=== PATIENT | female | born 1950 | race American Indian/Alaskan Native ===

== ENCOUNTER 2017-01-18 12:36 | Inpatient (IN) | payer MEDICARE ==
[2017-01-18 14:00] LABS: Basophils % (Auto) 0.3 % (0.0-1.8); Eosinophils % (Auto) 1.5 % (0.0-4.3); Hematocrit 38.7 % (30.3-42.9); Hemoglobin 12.7 gm/dl (10.1-14.3); Mean Corpuscular HGB Conc 33 % (30-34); Mean Corpuscular Hemoglobin 31 pg (28-32); Mean Corpuscular Volume 96 fl (79-97); Platelet Count 252 K/mm3 (140-440); Red Blood Count 4.04 M/mm3 (3.65-5.03); Red Cell Distribution Width 14.5 % (13.2-15.2); White Blood Count 8.2 K/mm3 (4.5-11.0)
[2017-01-18 14:06] LABS: INR 1.25 (0.87-1.13); Partial Thromboplastin Time 30.4 Sec. (24.2-36.6)
[2017-01-18 14:17] LABS: Anion Gap 19 mmol/L; BUN/Creatinine Ratio 12; Blood Urea Nitrogen 12 mg/dL (7-17); Calcium 8.8 mg/dL (8.4-10.2); Carbon Dioxide 23 mmol/L (22-30); Chloride 103.9 mmol/L (98-107); Glucose 121 mg/dL (65-100); Sodium 143 mmol/L (137-145)
--- NOTE | 2017-01-18 14:37 | Cat Scan Report ---
CT HEAD WITHOUT CONTRAST: HISTORY: Right sided weakness, slurred speech. TECHNIQUE: Sequential CT images without contrast. FINDINGS: Images obtained show bilateral prominence of the sulci and ventricles. There are no abnormal intra- or extra-axial blood or fluid collections. There are no focal masses or evidence of mass effect. The [place] white matter differentiation appears within normal limits. Regions of periventricular decreased attenuation are consistent with microangiopathic ischemic disease. 2 or 3 chronic lacunar infarcts are identified in both basal ganglia. The posterior fossa structures including the fourth ventricle, cerebellum, and brainstem appear normal. IMPRESSION: Evidence of atrophy and microangiopathic ischemic disease. Chronic lacunar infarcts in both basal ganglia. No acute intracranial process noted.
[2017-01-18] MEDS ORDERED: BABY ASPIRIN PO ONE (21:12)
--- NOTE | 2017-01-18 22:11 | Emergency Department Report ---
HPI - General Chief Complaint: Neuro Symptoms/Deficit Time Seen by Provider: 01/18/17 21:12 - HPI HPI: This is a 66 year-old female presents to the emergency department with her daughter with complaint of some altered mental status, slurred speech and some weakness that the daughter says has been going on since about 3 AM this morning. The patient had a fall on Sunday and then again last night. The falls were not witnessed but the daughter was in a nearby room. She says that her speech is much more slurred than usually is. The patient does have a history of dementia but she is usually awake, perkier and now also appears to have some right-sided weakness. She has a history of 2 previous strokes but there is no residual weakness or deficit from this after the patient completed rehabilitation. Her primary care doctor is Dr. Leo. She was not given anything for her symptoms. Presentation. The patient is a tobacco smoker but they deny any illicit drug use. The patient is a poor historian secondary to her current condition. ED Past Medical Hx - Past Medical History Previous Medical History?: Yes Hx Hypertension: Yes Hx CVA: Yes (MILD LEFT SIDED WEAKNESS) Hx Dementia: Yes Additional medical history: Elevated cholesterol - Surgical History Past Surgical History?: Yes Additional Surgical History: LEFT KNEE SURGERY. ear surgery - Social History Smoking Status: Current Every Day Smoker Substance Use Type: None - Medications Home Medications: Home Medications Medication Instructions Recorded Confirmed Last Taken Type Rosuvastatin (Nf) [Crestor] 10 mg PO QHS 11/14/13 11/14/13 Unknown History Atorvastatin [Lipitor] 40 mg PO QHS #30 tablet 11/21/13 Unknown Rx Benztropine [Cogentin] 3 mg PO QHS #30 tablet 11/21/13 Unknown Rx Clopidogrel [Plavix] 75 mg PO QDAY #30 tablet 11/21/13 Unknown Rx Haloperidol [Haldol] 5 mg PO QHS #30 tablet 11/21/13 Unknown Rx Metoprolol [Lopressor TAB] 100 mg PO DAILY #30 tablet 11/21/13 Unknown Rx OLANzapine [Zyprexa] 10 mg PO QHS #30 tablet 11/21/13 Unknown Rx Oxybutynin [Ditropan] 5 mg PO BID #60 tablet 11/21/13 Unknown Rx Trazodone HCl [traZODone] 100 mg PO QHS #30 tablet 11/21/13 Unknown Rx amLODIPine [Norvasc] 10 mg PO DAILY #30 tablet 11/21/13 Unknown Rx ED Review of Systems ROS: Stated complaint: FALL, RIGHT SIDE PAIN Other details as noted in HPI Comment: Unobtainable due to pts medical conditions Physical Exam - Physical Exam Vital Signs: Vital Signs 01/18/17 12:49 Temperature 97.7 F Pulse Rate 63 Respiratory 18 Rate Blood Pressure 150/81 O2 Sat by Pulse 98 Oximetry Physical Exam: GENERAL: Patient is ill-appearing. HENT: Normocephalic. Atraumatic. Patient has moist mucous membranes. EYES: Extraocular motions are intact. Pupils equal reactive to light bilaterally. No nystagmus. NECK: Supple. Trachea is midline. CHEST/LUNGS: Clear to auscultation. There is no respiratory distress noted. HEART/CARDIOVASCULAR: Regular. There is no tachycardia. There is no gallop rub or murmur. ABDOMEN: Abdomen is soft, nontender. Patient has normal bowel sounds. There is no abdominal distention. SKIN: Skin is warm and dry. NEURO: The patient is awake, alert but does show some confusion. There is a mild right upper extremity drift and/or weakness compared to the left. The patient appears to favor her right side as well. She has some slurred or mumbling speech. The patient will stare off, she is consistently stimulated. MUSCULOSKELETAL: There is no tenderness or deformity.There is no evidence of acute injury. ED Course Vital Signs 01/18/17 12:49 Temperature 97.7 F Pulse Rate 63 Respiratory 18 Rate Blood Pressure 150/81 O2 Sat by Pulse 98 Oximetry ED Medical Decision Making - Lab Data Result diagrams: 01/18/17 13:27 01/18/17 13:27 - EKG Data -: EKG Interpreted by Me EKG shows normal: sinus rhythm, axis (LAD), intervals, QRS complexes (LVH, Q waves to the inferior leads), ST-T waves Rate: normal - EKG Data When compared to previous EKG there are: previous EKG unavailable Interpretation: other (sinus rhythm, left axis deviation, LVH, Q waves to the inferior leads) - Radiology Data Radiology results: report reviewed, image reviewed interpreted by me: Chest x-ray does not show any acute process. There are no pleural effusions, obvious pneumonia and there is no pneumothorax. CT HEAD WITHOUT CONTRAST: HISTORY: Right sided weakness, slurred speech. TECHNIQUE: Sequential CT images without contrast. FINDINGS: Images obtained show bilateral prominence of the sulci and ventricles. There are no abnormal intra- or extra-axial blood or fluid collections. There are no focal masses or evidence of mass effect. The [place] white matter differentiation appears within normal limits. Regions of periventricular decreased attenuation are consistent with microangiopathic ischemic disease. 2 or 3 chronic lacunar infarcts are identified in both basal ganglia. The posterior fossa structures including the fourth ventricle, cerebellum, and brainstem appear normal. IMPRESSION: Evidence of atrophy and microangiopathic ischemic disease. Chronic lacunar infarcts in both basal ganglia. No acute intracranial process noted. Transcribed By: TTR Dictated By: SOILA STEINBERG JR, MD Electronically Authenticated By: SOILA STEINBERG JR, MD Signed Date/Time: 01/18/17 6623 - Medical Decision Making This patient had a couple days of some weakness and 2 falls including one yesterday. The patient has apparently been altered with some right-sided weakness and some altered mental status and speech difficulty since about 3 AM. Even with the patient being here for multiple hours prior to getting back to the main emergency department, the patient was not accepted at regional any time that would be consistent for TPA administration. The patient does display some right upper extremity drift and/or weakness and some mumbling speech as well as she is consistently staring off unless she is stimulated. There is concern for possible CVA. CT of the brain shows chronic lacunar infarcts in both basal ganglia but no acute process noted. Labs are grossly unremarkable and do not show any etiology of her symptoms. She will be admitted to the hospital for further evaluation and treatment and has been accepted for admission by the hospitalist, Dr. Masterson. - Differential Diagnosis CVA, TIA, dementia, hypoglycemia Critical Care Time: No Critical care attestation.: If time is entered above; I have spent that time in minutes in the direct care of this critically ill patient, excluding procedure time. ED Disposition Clinical Impression: Weakness CVA (cerebral infarction) Qualifiers: Cerebral infarction mechanism: unspecified mechanism Qualified Code(s): I63.9 - Cerebral infarction, unspecified Hypertension Qualifiers: Hypertension type: essential hypertension Qualified Code(s): I10 - Essential ( primary) hypertension Disposition: OP ADMIT IP TO THIS HOSP Is pt being admited?: Yes Condition: Fair
[2017-01-18 22:47] LABS: Bilirubin,Urine NEG (Negative); Blood,Urine NEG (Negative); Ketones,Urine NEG (Negative); Leukocyte Esterase,Urine NEG (Negative); Mucus,Urine FEW /HPF; Nitrite,Urine NEG (Negative); Protein,Urine <15 mg/dL mg/dL (Negative); RBC,Urine < 1.0 /HPF (0.0-6.0)
--- NOTE | 2017-01-19 00:40 | History and Physical Report ---
History of Present Illness Chief complaint: Weakness and slurred speech History of present illness: 66 YO Female with HTN, CVA with LHP, Dementia, Nicotine Dependence, HLD, presents to ED for evaluation. Pt is unable to give history due to lethargy, and diminished cognition. Pt daughter at bedside during exam and interview and provides history. As per daughter, the patient has experienced recurrent falls and weakness over the past month. Pt also experienced confusion and slurred speech and new onset right sided weakness that began about 0300 hrs with persistent symptoms since that time. No reports of fever, chills, CP, Palpitations, NVD, syncope, loss of bowel/bladder continence, vertigo, leg swelling/calf pain, individual/family history of DVT/PE, productive cough, or recent ill contacts. Pt seen and evaluated in ED and found to have symptoms and exam findings consistent with acute stroke. Pt treated IA stroke protocol. Past History Past Medical History: hypertension, hyperlipidemia, stroke Past Surgical History: Other (Left knee, ear surgery) Social history: single, smoking Family history: diabetes, hypertension Medications and Allergies Allergies Allergy/AdvReac Type Severity Reaction Status Date / Time Penicillins Allergy Itching Verified 11/14/13 20:01 Home Medications Medication Instructions Recorded Confirmed Last Taken Type Rosuvastatin (Nf) [Crestor] 10 mg PO QHS 11/14/13 11/14/13 Unknown History Atorvastatin [Lipitor] 40 mg PO QHS #30 tablet 11/21/13 Unknown Rx Benztropine [Cogentin] 3 mg PO QHS #30 tablet 11/21/13 Unknown Rx Clopidogrel [Plavix] 75 mg PO QDAY #30 tablet 11/21/13 Unknown Rx Haloperidol [Haldol] 5 mg PO QHS #30 tablet 11/21/13 Unknown Rx Metoprolol [Lopressor TAB] 100 mg PO DAILY #30 tablet 11/21/13 Unknown Rx OLANzapine [Zyprexa] 10 mg PO QHS #30 tablet 11/21/13 Unknown Rx Oxybutynin [Ditropan] 5 mg PO BID #60 tablet 11/21/13 Unknown Rx Trazodone HCl [traZODone] 100 mg PO QHS #30 tablet 11/21/13 Unknown Rx amLODIPine [Norvasc] 10 mg PO DAILY #30 tablet 11/21/13 Unknown Rx Review of Systems ROS unobtainable: due to mental status Exam - Constitutional Vitals: Temp Pulse Resp BP Pulse Ox 97.7 F 64 20 180/71 97 01/18/17 12:49 01/18/17 23:15 01/18/17 23:15 01/18/17 23:15 01/18/17 23:00 General appearance: Present: mild distress - Respiratory Respiratory effort: normal Respiratory: bilateral: CTA - Cardiovascular Heart Sounds: Present: S1 & S2. Absent: rub, click - Extremities Extremities: pulses symmetrical, No edema Peripheral Pulses: within normal limits - Abdominal General gastrointestinal: Present: soft, non-tender, non-distended, normal bowel sounds Female genitourinary: Present: normal - Integumentary Integumentary: Present: clear, dry, decreased turgor - Musculoskeletal Musculoskeletal: right sided weakness, left sided weakness - Psychiatric Psychiatric: no intact judgment & insight, no memory intact - Neurologic Neurologic: focal deficits, no moves all extremities, no gait normal Results - Labs CBC & Chem 7: 01/18/17 13:27 01/18/17 13:27 Labs: Abnormal lab results 01/18/17 01/18/17 01/18/17 Range/Units 13:27 13:27 13:27 [place] % (Auto) 7.8 H (0.0-7.3) % PT 16.3 H (12.2-14.9) Sec. INR 1.25 H (0.87-1.13) Potassium 3.0 L (3.6-5.0) mmol/L Glucose 121 H (65-100) mg/dL Assessment and Plan - Patient Problems (1) CVA (cerebral infarction) Onset Date: 11/15/13 Current Visit: Yes Status: Acute Qualifiers: Cerebral infarction mechanism: unspecified mechanism Qualified Code(s): I63.9 - Cerebral infarction, unspecified Plan to address problem: Stroke protocol: CT Head, MRI Brain, MRA Brain, Echo, Carotid Doppler, PT/OT/ Speech Therapy, Antiplatelet therapy, statin therapy, (2) Hypokalemia Current Visit: Yes Status: Acute Plan to address problem: Repleted, repeat bmp (3) HTN (hypertension) Current Visit: Yes Status: Chronic Qualifiers: Hypertension type: essential hypertension Qualified Code(s): I10 - Essential (primary) hypertension Plan to address problem: Monitor bp q shift, permissive hypertension overnight. (4) Hyperlipidemia Current Visit: No Status: Chronic Plan to address problem: Lipid panel, statin therpay, low cholesterol diet, (5) DVT prophylaxis Current Visit: Yes Status: Acute
[2017-01-19] MEDS ORDERED: MILK OF MAGNESIA PO PRN (00:41)
[2017-01-19] MEDS ORDERED: DULCOLAX PR PRN (00:41)
[2017-01-19] MEDS ORDERED: SODIUM CHLORIDE FLUSH SYRINGE 10 ML IV PRN (00:41)
[2017-01-19] MEDS ORDERED: TYLENOL PO PRN (00:41)
[2017-01-19] MEDS ORDERED: PHENERGAN PR PRN (00:41)
[2017-01-19] MEDS ORDERED: REGLAN PO PRN (00:41)
[2017-01-19] MEDS ORDERED: ZOFRAN IV PRN (00:41)
--- NOTE | 2017-01-19 07:17 | XRay Report ---
AP PELVIS: HISTORY: Pain after fall. AP view of the pelvis shows normal pelvic contour and soft tissues. The hips are symmetric and within normal limits as are the sacroiliac joints. Mild bone demineralization is suspected. IMPRESSION: Unremarkable pelvis. Mild osteopenia.
--- NOTE | 2017-01-19 07:17 | XRay Report ---
AP CHEST: HISTORY: Pain after fall AP view of the chest demonstrates a normal mediastinal and cardiac contour with clear lungs and normal bony and soft tissue structures. IMPRESSION: Unremarkable AP chest.
--- NOTE | 2017-01-19 09:22 | Progress Note ---
Assessment and Plan Assessment and plan: --Acute CVA; neuro workup is in progress --Hypertension --Hypokalemia --Dyslipidemia --Tobacco use Hospitalist Physical - Constitutional Vitals: Temp Pulse Resp BP Pulse Ox 98.2 F 49 L 20 180/96 100 01/19/17 05:04 01/19/17 08:08 01/19/17 05:04 01/19/17 08:08 01/19/17 08:08 General appearance: Present: mild distress Results - Labs CBC & Chem 7: 01/18/17 13:27 01/18/17 13:27 Labs: Laboratory Last Values WBC 8.2 K/mm3 (4.5-11.0) 01/18/17 13:27 RBC 4.04 M/mm3 (3.65-5.03) 01/18/17 13:27 Hgb 12.7 gm/dl (10.1-14.3) 01/18/17 13:27 Hct 38.7 % (30.3-42.9) 01/18/17 13:27 MCV 96 fl (79-97) 01/18/17 13:27 MCH 31 pg (28-32) 01/18/17 13:27 MCHC 33 % (30-34) 01/18/17 13:27 RDW 14.5 % (13.2-15.2) 01/18/17 13:27 Plt Count 252 K/mm3 (140-440) 01/18/17 13:27 Lymph % (Auto) 27.4 % (13.4-35.0) 01/18/17 13:27 [place] % (Auto) 7.8 % (0.0-7.3) H 01/18/17 13:27 Eos % (Auto) 1.5 % (0.0-4.3) 01/18/17 13:27 Baso % (Auto) 0.3 % (0.0-1.8) 01/18/17 13:27 Lymph # 2.2 K/mm3 (1.2-5.4) 01/18/17 13:27 [place] # 0.6 K/mm3 (0.0-0.8) 01/18/17 13:27 Eos # 0.1 K/mm3 (0.0-0.4) 01/18/17 13:27 Baso # 0.0 K/mm3 (0.0-0.1) 01/18/17 13:27 Seg Neutrophils % 63.0 % (40.0-70.0) 01/18/17 13:27 Seg Neutrophils # 5.2 K/mm3 (1.8-7.7) 01/18/17 13:27 PT 16.3 Sec. (12.2-14.9) H 01/18/17 13:27 INR 1.25 (0.87-1.13) H 01/18/17 13:27 APTT 30.4 Sec. (24.2-36.6) 01/18/17 13:27 Thrombin Time 16.4 Sec. (15.1-19.6) 01/18/17 13:27 Sodium 143 mmol/L (137-145) 01/18/17 13:27 Potassium 3.0 mmol/L (3.6-5.0) L 01/18/17 13:27 Chloride 103.9 mmol/L (98-107) 01/18/17 13:27 Carbon Dioxide 23 mmol/L (22-30) 01/18/17 13:27 Anion Gap 19 mmol/L 01/18/17 13:27 BUN 12 mg/dL (7-17) 01/18/17 13:27 Creatinine 1.0 mg/dL (0.7-1.2) 01/18/17 13:27 Estimated GFR > 60 ml/min 01/18/17 13:27 BUN/Creatinine Ratio 12 % 01/18/17 13:27 Glucose 121 mg/dL (65-100) H 01/18/17 13:27 Calcium 8.8 mg/dL (8.4-10.2) 01/18/17 13:27 Troponin T < 0.010 ng/mL (0.00-0.029) 01/18/17 13:27 Urine Color Yellow (Yellow) 01/18/17 Unknown Urine Turbidity Clear (Clear) 01/18/17 Unknown Urine pH 6.0 (5.0-7.0) 01/18/17 Unknown Ur Specific [place] 1.014 (1.003-1.030) 01/18/17 Unknown Urine Protein <15 mg/dl mg/dL (Negative) 01/18/17 Unknown Urine Glucose (UA) Neg mg/dL (Negative) 01/18/17 Unknown Urine Ketones Neg mg/dL (Negative) 01/18/17 Unknown Urine Blood Neg (Negative) 01/18/17 Unknown Urine Nitrite Neg (Negative) 01/18/17 Unknown Urine Bilirubin Neg (Negative) 01/18/17 Unknown Urine Urobilinogen 4.0 mg/dL (<2.0) 01/18/17 Unknown Ur Leukocyte Esterase Neg (Negative) 01/18/17 Unknown Urine WBC (Auto) 1.0 /HPF (0.0-6.0) 01/18/17 Unknown Urine RBC (Auto) < 1.0 /HPF (0.0-6.0) 01/18/17 Unknown U Epithel Cells (Auto) < 1.0 /HPF (0-13.0) 01/18/17 Unknown Urine Mucus Few /HPF 01/18/17 Unknown
--- NOTE | 2017-01-19 12:14 | Progress Note ---
<IRMA AU - Last Filed: 01/19/17 13:01> Assessment and Plan Assessment and plan: 66 YO Female with HTN, CVA with LHP, Dementia, Nicotine Dependence, HLD, presents to ED for evaluation. Pt is unable to give history due to lethargy, and diminished cognition. Pt daughter at bedside during exam and interview and provides history. As per daughter, the patient has experienced recurrent falls and weakness over the past month. Pt also experienced confusion and slurred speech and new onset right sided weakness that began about 0300 hrs with persistent symptoms since that time. No reports of fever, chills, CP, Palpitations, NVD, syncope, loss of bowel/bladder continence, vertigo, leg swelling/calf pain, individual/family history of DVT/PE, productive cough, or recent ill contacts. Pt seen and evaluated in ED and found to have symptoms and exam findings consistent with acute stroke. Assessment and Plan (1) CVA (cerebral infarction) Stroke protocol: CT Head, MRI Brain, MRA Brain, Echo, Carotid Doppler, PT/OT/ Speech Therapy, Antiplatelet therapy, statin therapy, NEUROLOGY Consulted (2) Hypokalemia Repeat Cmp, replete if still low (3) HTN (hypertension) Monitor bp q shift, permissive hypertension overnight. (4) Hyperlipidemia Lipid panel, statin therpay, low cholesterol diet, (5) DVT prophylaxis SSD History Interval history: Patient is lethargic and responds to name by opening her eyes but only mumbles. Hospitalist Physical - Constitutional Vitals: Temp Pulse Resp BP Pulse Ox 97.9 F 65 18 180/65 100 01/19/17 10:58 01/19/17 10:58 01/19/17 10:58 01/19/17 10:58 01/19/17 10:58 General appearance: Present: no acute distress - EENT Eyes: Present: PERRL, EOM intact ENT: hearing intact, clear oral mucosa - Neck Neck: Present: supple, normal ROM - Respiratory Respiratory effort: normal Respiratory: bilateral: CTA - Cardiovascular Rhythm: regular Heart Sounds: Present: S1 & S2 - Extremities Extremities: no ischemia, No edema Peripheral Pulses: within normal limits - Abdominal General gastrointestinal: soft, non-tender, non-distended - Integumentary Integumentary: Present: clear, warm, dry - Psychiatric Psychiatric: appropriate mood/affect, cooperative - Neurologic Neurologic: CNII-XII intact - Allied Health Allied health notes reviewed: nursing Results - Labs CBC & Chem 7: 01/18/17 13:27 01/18/17 13:27 Labs: Laboratory Last Values WBC 8.2 K/mm3 (4.5-11.0) 01/18/17 13:27 RBC 4.04 M/mm3 (3.65-5.03) 01/18/17 13:27 Hgb 12.7 gm/dl (10.1-14.3) 01/18/17 13:27 Hct 38.7 % (30.3-42.9) 01/18/17 13:27 MCV 96 fl (79-97) 01/18/17 13:27 MCH 31 pg (28-32) 01/18/17 13:27 MCHC 33 % (30-34) 01/18/17 13:27 RDW 14.5 % (13.2-15.2) 01/18/17 13:27 Plt Count 252 K/mm3 (140-440) 01/18/17 13:27 Lymph % (Auto) 27.4 % (13.4-35.0) 01/18/17 13:27 [place] % (Auto) 7.8 % (0.0-7.3) H 01/18/17 13:27 Eos % (Auto) 1.5 % (0.0-4.3) 01/18/17 13:27 Baso % (Auto) 0.3 % (0.0-1.8) 01/18/17 13:27 Lymph # 2.2 K/mm3 (1.2-5.4) 01/18/17 13:27 [place] # 0.6 K/mm3 (0.0-0.8) 01/18/17 13:27 Eos # 0.1 K/mm3 (0.0-0.4) 01/18/17 13:27 Baso # 0.0 K/mm3 (0.0-0.1) 01/18/17 13:27 Seg Neutrophils % 63.0 % (40.0-70.0) 01/18/17 13:27 Seg Neutrophils # 5.2 K/mm3 (1.8-7.7) 01/18/17 13:27 PT 16.3 Sec. (12.2-14.9) H 01/18/17 13:27 INR 1.25 (0.87-1.13) H 01/18/17 13:27 APTT 30.4 Sec. (24.2-36.6) 01/18/17 13:27 Thrombin Time 16.4 Sec. (15.1-19.6) 01/18/17 13:27 Sodium 143 mmol/L (137-145) 01/18/17 13:27 Potassium 3.0 mmol/L (3.6-5.0) L 01/18/17 13:27 Chloride 103.9 mmol/L (98-107) 01/18/17 13:27 Carbon Dioxide 23 mmol/L (22-30) 01/18/17 13:27 Anion Gap 19 mmol/L 01/18/17 13:27 BUN 12 mg/dL (7-17) 01/18/17 13:27 Creatinine 1.0 mg/dL (0.7-1.2) 01/18/17 13:27 Estimated GFR > 60 ml/min 01/18/17 13:27 BUN/Creatinine Ratio 12 % 01/18/17 13:27 Glucose 121 mg/dL (65-100) H 01/18/17 13:27 Calcium 8.8 mg/dL (8.4-10.2) 01/18/17 13:27 Troponin T < 0.010 ng/mL (0.00-0.029) 01/18/17 13:27 Urine Color Yellow (Yellow) 01/18/17 Unknown Urine Turbidity Clear (Clear) 01/18/17 Unknown Urine pH 6.0 (5.0-7.0) 01/18/17 Unknown Ur Specific [place] 1.014 (1.003-1.030) 01/18/17 Unknown Urine Protein <15 mg/dl mg/dL (Negative) 01/18/17 Unknown Urine Glucose (UA) Neg mg/dL (Negative) 01/18/17 Unknown Urine Ketones Neg mg/dL (Negative) 01/18/17 Unknown Urine Blood Neg (Negative) 01/18/17 Unknown Urine Nitrite Neg (Negative) 01/18/17 Unknown Urine Bilirubin Neg (Negative) 01/18/17 Unknown Urine Urobilinogen 4.0 mg/dL (<2.0) 01/18/17 Unknown Ur Leukocyte Esterase Neg (Negative) 01/18/17 Unknown Urine WBC (Auto) 1.0 /HPF (0.0-6.0) 01/18/17 Unknown Urine RBC (Auto) < 1.0 /HPF (0.0-6.0) 01/18/17 Unknown U Epithel Cells (Auto) < 1.0 /HPF (0-13.0) 01/18/17 Unknown Urine Mucus Few /HPF 01/18/17 Unknown - Imaging and Cardiology Imaging and Cardiology: PRELIMINARY REPORT SHOWS CAROTID DUPLEX DONE.TORTUOUS ICA'S AND HIGH BIFURCATION BILATERALLY. <50% STENOSIS BILATERALLY BY DOPPLER VELOCITIES.ANTEGRADE VERTEBRAL ARTERY FLOW BILATERALLY. <STEFANY RODRIGUEZ - Last Filed: 01/19/17 20:12> Assessment and Plan Assessment and plan: Physical therapy occupational therapy, speech therapy Rehabilitation Neurology evaluation if needed DC planning to case management Agree with the above documentation and treatment plan Hospitalist Physical - Constitutional Vitals: Temp Pulse Resp BP Pulse Ox 97.9 F 71 20 155/62 95 01/19/17 20:01 01/19/17 20:01 01/19/17 20:01 01/19/17 17:38 01/19/17 20:01 Results - Labs CBC & Chem 7: 01/18/17 13:27 01/19/17 13:49 Labs: Laboratory Last Values WBC 8.2 K/mm3 (4.5-11.0) 01/18/17 13:27 RBC 4.04 M/mm3 (3.65-5.03) 01/18/17 13:27 Hgb 12.7 gm/dl (10.1-14.3) 01/18/17 13:27 Hct 38.7 % (30.3-42.9) 01/18/17 13:27 MCV 96 fl (79-97) 01/18/17 13:27 MCH 31 pg (28-32) 01/18/17 13:27 MCHC 33 % (30-34) 01/18/17 13:27 RDW 14.5 % (13.2-15.2) 01/18/17 13:27 Plt Count 252 K/mm3 (140-440) 01/18/17 13:27 Lymph % (Auto) 27.4 % (13.4-35.0) 01/18/17 13:27 [place] % (Auto) 7.8 % (0.0-7.3) H 01/18/17 13:27 Eos % (Auto) 1.5 % (0.0-4.3) 01/18/17 13:27 Baso % (Auto) 0.3 % (0.0-1.8) 01/18/17 13:27 Lymph # 2.2 K/mm3 (1.2-5.4) 01/18/17 13:27 [place] # 0.6 K/mm3 (0.0-0.8) 01/18/17 13:27 Eos # 0.1 K/mm3 (0.0-0.4) 01/18/17 13:27 Baso # 0.0 K/mm3 (0.0-0.1) 01/18/17 13:27 Seg Neutrophils % 63.0 % (40.0-70.0) 01/18/17 13:27 Seg Neutrophils # 5.2 K/mm3 (1.8-7.7) 01/18/17 13:27 PT 16.3 Sec. (12.2-14.9) H 01/18/17 13:27 INR 1.25 (0.87-1.13) H 01/18/17 13:27 APTT 30.4 Sec. (24.2-36.6) 01/18/17 13:27 Thrombin Time 16.4 Sec. (15.1-19.6) 01/18/17 13:27 Sodium 143 mmol/L (137-145) 01/19/17 13:49 Potassium 3.0 mmol/L (3.6-5.0) L 01/19/17 13:49 Chloride 105.0 mmol/L (98-107) 01/19/17 13:49 Carbon Dioxide 25 mmol/L (22-30) 01/19/17 13:49 Anion Gap 16 mmol/L 01/19/17 13:49 BUN 10 mg/dL (7-17) 01/19/17 13:49 Creatinine 0.9 mg/dL (0.7-1.2) 01/19/17 13:49 Estimated GFR > 60 ml/min 01/19/17 13:49 BUN/Creatinine Ratio 11 % 01/19/17 13:49 Glucose 127 mg/dL (65-100) H 01/19/17 13:49 Calcium 8.5 mg/dL (8.4-10.2) 01/19/17 13:49 Total Bilirubin 0.50 mg/dL (0.1-1.2) 01/19/17 13:49 AST 14 units/L (5-40) 01/19/17 13:49 ALT 10 units/L (7-56) 01/19/17 13:49 Alkaline Phosphatase 156 units/L (35-129) H 01/19/17 13:49 Troponin T < 0.010 ng/mL (0.00-0.029) 01/18/17 13:27 Total Protein 6.5 g/dL (6.3-8.2) 01/19/17 13:49 Albumin 3.1 g/dL (3.9-5) L 01/19/17 13:49 Albumin/Globulin Ratio 0.9 % 01/19/17 13:49 Urine Color Yellow (Yellow) 01/18/17 Unknown Urine Turbidity Clear (Clear) 01/18/17 Unknown Urine pH 6.0 (5.0-7.0) 01/18/17 Unknown Ur Specific [place] 1.014 (1.003-1.030) 01/18/17 Unknown Urine Protein <15 mg/dl mg/dL (Negative) 01/18/17 Unknown Urine Glucose (UA) Neg mg/dL (Negative) 01/18/17 Unknown Urine Ketones Neg mg/dL (Negative) 01/18/17 Unknown Urine Blood Neg (Negative) 01/18/17 Unknown Urine Nitrite Neg (Negative) 01/18/17 Unknown Urine Bilirubin Neg (Negative) 01/18/17 Unknown Urine Urobilinogen 4.0 mg/dL (<2.0) 01/18/17 Unknown Ur Leukocyte Esterase Neg (Negative) 01/18/17 Unknown Urine WBC (Auto) 1.0 /HPF (0.0-6.0) 01/18/17 Unknown Urine RBC (Auto) < 1.0 /HPF (0.0-6.0) 01/18/17 Unknown U Epithel Cells (Auto) < 1.0 /HPF (0-13.0) 01/18/17 Unknown Urine Mucus Few /HPF 01/18/17 Unknown
[2017-01-19 14:22] LABS: Alanine Aminotransferase 10 units/L (7-56); Albumin 3.1 g/dL (3.9-5); Albumin/Globulin Ratio 0.9 %; Alkaline Phosphatase 156 units/L (35-129); Anion Gap 16 mmol/L; BUN/Creatinine Ratio 11; Blood Urea Nitrogen 10 mg/dL (7-17); Calcium 8.5 mg/dL (8.4-10.2); Carbon Dioxide 25 mmol/L (22-30); Glucose 127 mg/dL (65-100); Sodium 143 mmol/L (137-145); Total Protein 6.5 g/dL (6.3-8.2)
[2017-01-19] MEDS: PLAVIX PO SCH (15:05)
[2017-01-19] MEDS: DITROPAN PO SCH ×2 (15:06→23:00)
[2017-01-19] MEDS: ASPIRIN PO SCH (15:06)
[2017-01-19] MEDS ORDERED: ATIVAN IV ONE (16:17)
[2017-01-19] MEDS: COGENTIN PO SCH (22:59)
[2017-01-19] MEDS: HALDOL PO SCH (23:00)
[2017-01-19] MEDS: DESYREL PO SCH (23:00)
[2017-01-19] MEDS ORDERED: ATIVAN IV PRN (23:22)
[2017-01-20 06:26] LABS: Anion Gap 19 mmol/L; BUN/Creatinine Ratio 12; Blood Urea Nitrogen 12 mg/dL (7-17); Calcium 8.2 mg/dL (8.4-10.2); Carbon Dioxide 23 mmol/L (22-30); Chloride 106.6 mmol/L (98-107); Cholesterol 145 mg/dL (50-199); Glucose 97 mg/dL (65-100); HDL Cholesterol 37 mg/dL (40-59); LDL Cholesterol,Direct 94 mg/dL (50-130); Potassium 3.1 mmol/L (3.6-5.0); Sodium 145 mmol/L (137-145); Triglycerides 73 mg/dL (2-149)
[2017-01-20] MEDS ORDERED: K-DUR PO ONE (10:00)
[2017-01-20] MEDS: DITROPAN PO SCH ×2 (12:02→22:05)
[2017-01-20] MEDS: PLAVIX PO SCH (12:02)
[2017-01-20] MEDS: ASPIRIN PO SCH (12:03)
--- NOTE | 2017-01-20 12:06 | Consultation ---
History of Present Illness Consult date: 01/20/17 History of present illness: there are two very evry small infarcts in the left hemisphere on the difusion weighted images could be emboli await intrep. of the MRA from radiology explained dx to patient Past History Past Medical History: hypertension, hyperlipidemia, stroke Past Surgical History: Other (Left knee, ear surgery) Social history: single, smoking Family history: diabetes, hypertension Medications and Allergies Allergies Allergy/AdvReac Type Severity Reaction Status Date / Time Penicillins Allergy Itching Verified 11/14/13 20:01 Home Medications Medication Instructions Recorded Confirmed Last Taken Type Rosuvastatin (Nf) [Crestor] 10 mg PO QHS 11/14/13 01/19/17 Unknown History Atorvastatin [Lipitor] 40 mg PO QHS #30 tablet 11/21/13 01/19/17 Unknown Rx Benztropine [Cogentin] 3 mg PO QHS #30 tablet 11/21/13 01/19/17 Unknown Rx Clopidogrel [Plavix] 75 mg PO QDAY #30 tablet 11/21/13 01/19/17 Unknown Rx Haloperidol [Haldol] 5 mg PO QHS #30 tablet 11/21/13 01/19/17 Unknown Rx Metoprolol [Lopressor TAB] 100 mg PO DAILY #30 tablet 11/21/13 01/19/17 Unknown Rx OLANzapine [Zyprexa] 10 mg PO QHS #30 tablet 11/21/13 01/19/17 Unknown Rx Oxybutynin [Ditropan] 5 mg PO BID #60 tablet 11/21/13 01/19/17 Unknown Rx Trazodone HCl [traZODone] 100 mg PO QHS #30 tablet 11/21/13 01/19/17 Unknown Rx amLODIPine [Norvasc] 10 mg PO DAILY #30 tablet 11/21/13 01/19/17 Unknown Rx Active Meds: Active Medications Acetaminophen (Tylenol) 650 mg PO Q4H PRN PRN Reason: Pain, Mild (1-3) Aspirin (Aspirin) 325 mg PO QDAY [facility] Last Admin: 01/20/17 12:03 Dose: 325 mg Atorvastatin Calcium (Lipitor) 40 mg PO QHS [facility] Last Admin: 01/19/17 23:00 Dose: 40 mg Benztropine Mesylate (Cogentin) 3 mg PO QHS [facility] Last Admin: 01/19/17 22:59 Dose: 3 mg Bisacodyl (Dulcolax) 10 mg [place] QDAY PRN PRN Reason: Constipation Clopidogrel Bisulfate (Plavix) 75 mg PO QDAY [facility] Last Admin: 01/20/17 12:02 Dose: 75 mg Haloperidol (Haldol) 5 mg PO QHS [facility] Last Admin: 01/19/17 23:00 Dose: 5 mg Lorazepam (Ativan) 2 mg IV ONCE PRN PRN Reason: Agitation Last Admin: 01/20/17 09:55 Dose: 2 mg Magnesium Hydroxide (Milk Of Magnesia) 30 ml PO Q4H PRN PRN Reason: Constipation Metoclopramide HCl (Reglan) 10 mg PO Q6H PRN PRN Reason: Nausea And Vomiting Olanzapine (Zyprexa) 10 mg PO QHS [facility] Last Admin: 01/19/17 23:04 Dose: 10 mg Ondansetron HCl (Zofran) 4 mg IV Q8H PRN PRN Reason: N/V unrelieved by Reglan Oxybutynin Chloride (Ditropan) 5 mg PO BID [facility] Last Admin: 01/20/17 12:02 Dose: 5 mg Promethazine HCl (Phenergan) 25 mg [place] Q6H PRN PRN Reason: Nausea And Vomiting Sodium Chloride (Sodium Chloride Flush Syringe 10 Ml) 10 ml IV PRN PRN PRN Reason: LINE FLUSH Trazodone HCl (Desyrel) 100 mg PO QHS [facility] Last Admin: 01/19/17 23:00 Dose: 100 mg Physical Examination - Vital Signs Vital Signs: Vital Signs Temp Pulse Resp BP Pulse Ox 97.7 F 63 18 150/81 98 01/18/17 12:49 01/18/17 12:49 01/18/17 12:49 01/18/17 12:49 01/18/17 12:49 Results - Laboratory Findings CBC and BMP: 01/18/17 13:27 01/20/17 04:43 Abnormal Lab Findings: Abnormal Labs 01/18/17 01/18/17 01/18/17 13:27 13:27 13:27 [place] % (Auto) 7.8 H PT 16.3 H INR 1.25 H Potassium 3.0 L Glucose 121 H POC Glucose Calcium Alkaline Phosphatase Albumin HDL Cholesterol 01/19/17 01/19/17 01/20/17 13:49 22:13 04:43 [place] % (Auto) PT INR Potassium 3.0 L 3.1 L Glucose 127 H POC Glucose 153 H Calcium 8.2 L Alkaline Phosphatase 156 H Albumin 3.1 L HDL Cholesterol 37 L
--- NOTE | 2017-01-20 12:08 | Magnetic Resonance Report ---
MRI OF THE BRAIN WITHOUT CONTRAST: HISTORY: Stroke PROCEDURE: Multiplanar, multisequence MR imaging of the brain without IV contrast was performed. FINDINGS: CT brain without contrast dated 01/18/17 was reviewed. MRI demonstrates a solitary 1 cm focus of diffusion restriction in the lateral left frontal cortex on image 22. This appears to overlie the left pre-central gyrus. There is no evidence for hemorrhage, mass or extra-axial fluid collection. There are multiple chronic lacunar infarcts in both basal ganglia measuring less than 1 cm. There are moderate nonspecific chronic white matter changes. The midline structures are central. The basal cisterns are patent. Normal ventricular size. The orbital cavities and sella turcica demonstrate no abnormality. The visualized paranasal sinuses and mastoid air cells are well aerated. IMPRESSION: 1 cm focus of subacute ischemia in the left lateral frontal lobe cortex as described above.
--- NOTE | 2017-01-20 12:09 | Magnetic Resonance Report ---
MRA HEAD WITHOUT CONTRAST HISTORY: Stroke. [id number] imaging with MIP reformations of the jackson of [place] is submitted. Limited noncontrast exam with poor visualization of the distal small vessels. There is no evidence for large vessel occlusion, stenosis or aneurysm near the jackson of [place]. The proximal cerebral arteries are patent throughout. IMPRESSION: Limited but grossly normal MRA of the head.
[2017-01-20] MEDS ORDERED: APRESOLINE IV NR (14:14)
[2017-01-20] MEDS: NORVASC PO SCH (14:25)
[2017-01-20] MEDS: LOPRESSOR PO SCH (14:25)
--- NOTE | 2017-01-20 17:37 | Progress Note ---
Assessment and Plan Assessment and plan: --Hypokalemia; replace per protocol and monitor levels --Acute/subacute CVA; not a candidate for TPA Continue aspirin and statin, physical therapy and occupational therapy, follow neuro workup, neurology following --Hypertension; moderate control continue current antihypertensives and when necessary medications --Dyslipidemia; on statin --Ongoing tobacco use; smoking cessation counseling done advised nicotine patch Risks and consequences of tobacco use explained to the patient, strongly advised to set a date and quit I answered all her questions --DVT prophylaxis; Lovenox Physical therapy occupational therapy DC planning. Case management History Interval history: Sincerely and examined medical records reviewed Admitted with acute CVA, neuro workup is in progress Patient feels better no new complaints Vital signs reviewed Hospitalist Physical - Constitutional Vitals: Temp Pulse Resp BP Pulse Ox 98.3 F 52 L 18 185/71 96 01/20/17 04:48 01/20/17 07:57 01/20/17 04:48 01/20/17 04:48 01/20/17 04:48 General appearance: Present: no acute distress, well-nourished - EENT Eyes: Present: PERRL, irregular pupil - Neck Neck: Present: supple, normal ROM - Respiratory Respiratory effort: normal Respiratory: bilateral: diminished, negative: rales, rhonchi, wheezing - Cardiovascular Rhythm: regular Heart Sounds: Present: S1 & S2 - Extremities Extremities: no ischemia, No edema - Abdominal General gastrointestinal: soft, non-tender, non-distended, normal bowel sounds - Integumentary Integumentary: Present: clear, warm - Psychiatric Psychiatric: appropriate mood/affect, cooperative - Neurologic Neurologic: moves all extremities Results - Labs CBC & Chem 7: 01/18/17 13:27 01/20/17 04:43 Labs: Laboratory Last Values WBC 8.2 K/mm3 (4.5-11.0) 01/18/17 13:27 RBC 4.04 M/mm3 (3.65-5.03) 01/18/17 13:27 Hgb 12.7 gm/dl (10.1-14.3) 01/18/17 13:27 Hct 38.7 % (30.3-42.9) 01/18/17 13:27 MCV 96 fl (79-97) 01/18/17 13:27 MCH 31 pg (28-32) 01/18/17 13:27 MCHC 33 % (30-34) 01/18/17 13:27 RDW 14.5 % (13.2-15.2) 01/18/17 13:27 Plt Count 252 K/mm3 (140-440) 01/18/17 13:27 Lymph % (Auto) 27.4 % (13.4-35.0) 01/18/17 13:27 [place] % (Auto) 7.8 % (0.0-7.3) H 01/18/17 13:27 Eos % (Auto) 1.5 % (0.0-4.3) 01/18/17 13:27 Baso % (Auto) 0.3 % (0.0-1.8) 01/18/17 13:27 Lymph # 2.2 K/mm3 (1.2-5.4) 01/18/17 13:27 [place] # 0.6 K/mm3 (0.0-0.8) 01/18/17 13:27 Eos # 0.1 K/mm3 (0.0-0.4) 01/18/17 13:27 Baso # 0.0 K/mm3 (0.0-0.1) 01/18/17 13:27 Seg Neutrophils % 63.0 % (40.0-70.0) 01/18/17 13:27 Seg Neutrophils # 5.2 K/mm3 (1.8-7.7) 01/18/17 13:27 PT 16.3 Sec. (12.2-14.9) H 01/18/17 13:27 INR 1.25 (0.87-1.13) H 01/18/17 13:27 APTT 30.4 Sec. (24.2-36.6) 01/18/17 13:27 Thrombin Time 16.4 Sec. (15.1-19.6) 01/18/17 13:27 Sodium 145 mmol/L (137-145) 01/20/17 04:43 Potassium 3.1 mmol/L (3.6-5.0) L 01/20/17 04:43 Chloride 106.6 mmol/L (98-107) 01/20/17 04:43 Carbon Dioxide 23 mmol/L (22-30) 01/20/17 04:43 Anion Gap 19 mmol/L 01/20/17 04:43 BUN 12 mg/dL (7-17) 01/20/17 04:43 Creatinine 1.0 mg/dL (0.7-1.2) 01/20/17 04:43 Estimated GFR > 60 ml/min 01/20/17 04:43 BUN/Creatinine Ratio 12 % 01/20/17 04:43 Glucose 97 mg/dL (65-100) 01/20/17 04:43 POC Glucose 153 (70-105) H 01/19/17 22:13 Calcium 8.2 mg/dL (8.4-10.2) L 01/20/17 04:43 Magnesium 2.00 mg/dL (1.7-2.3) 01/20/17 04:43 Total Bilirubin 0.50 mg/dL (0.1-1.2) 01/19/17 13:49 AST 14 units/L (5-40) 01/19/17 13:49 ALT 10 units/L (7-56) 01/19/17 13:49 Alkaline Phosphatase 156 units/L (35-129) H 01/19/17 13:49 Troponin T < 0.010 ng/mL (0.00-0.029) 01/18/17 13:27 Total Protein 6.5 g/dL (6.3-8.2) 01/19/17 13:49 Albumin 3.1 g/dL (3.9-5) L 01/19/17 13:49 Albumin/Globulin Ratio 0.9 % 01/19/17 13:49 Triglycerides 73 mg/dL (2-149) 01/20/17 04:43 Cholesterol 145 mg/dL (50-199) 01/20/17 04:43 LDL Cholesterol Direct 94 mg/dL (50-130) 01/20/17 04:43 HDL Cholesterol 37 mg/dL (40-59) L 01/20/17 04:43 Cholesterol/HDL Ratio 3.91 % 01/20/17 04:43 Urine Color Yellow (Yellow) 01/18/17 Unknown Urine Turbidity Clear (Clear) 01/18/17 Unknown Urine pH 6.0 (5.0-7.0) 01/18/17 Unknown Ur Specific [place] 1.014 (1.003-1.030) 01/18/17 Unknown Urine Protein <15 mg/dl mg/dL (Negative) 01/18/17 Unknown Urine Glucose (UA) Neg mg/dL (Negative) 01/18/17 Unknown Urine Ketones Neg mg/dL (Negative) 01/18/17 Unknown Urine Blood Neg (Negative) 01/18/17 Unknown Urine Nitrite Neg (Negative) 01/18/17 Unknown Urine Bilirubin Neg (Negative) 01/18/17 Unknown Urine Urobilinogen 4.0 mg/dL (<2.0) 01/18/17 Unknown Ur Leukocyte Esterase Neg (Negative) 01/18/17 Unknown Urine WBC (Auto) 1.0 /HPF (0.0-6.0) 01/18/17 Unknown Urine RBC (Auto) < 1.0 /HPF (0.0-6.0) 01/18/17 Unknown U Epithel Cells (Auto) < 1.0 /HPF (0-13.0) 01/18/17 Unknown Urine Mucus Few /HPF 01/18/17 Unknown
[2017-01-20] MEDS ORDERED: APRESOLINE IV PRN (17:45)
[2017-01-20] MEDS: APRESOLINE PO SCH (22:04)
[2017-01-20] MEDS: LOVENOX SUB-Q SCH (22:04)
[2017-01-20] MEDS: DESYREL PO SCH (22:05)
[2017-01-20] MEDS: COGENTIN PO SCH (22:05)
[2017-01-20] MEDS: HALDOL PO SCH (22:05)
[2017-01-21] MEDS: APRESOLINE PO SCH ×3 (06:14→21:59)
[2017-01-21 07:55] LABS: Basophils % (Auto) 0.3 % (0.0-1.8); Eosinophils % (Auto) 1.9 % (0.0-4.3); Hematocrit 35.7 % (30.3-42.9); Hemoglobin 12.5 gm/dl (10.1-14.3); Mean Corpuscular HGB Conc 35 % (30-34); Mean Corpuscular Hemoglobin 33 pg (28-32); Mean Corpuscular Volume 94 fl (79-97); Platelet Count 256 K/mm3 (140-440); Red Blood Count 3.79 M/mm3 (3.65-5.03); Red Cell Distribution Width 14.1 % (13.2-15.2); White Blood Count 6.9 K/mm3 (4.5-11.0)
[2017-01-21 08:05] LABS: Anion Gap 16 mmol/L; BUN/Creatinine Ratio 15; Blood Urea Nitrogen 12 mg/dL (7-17); Calcium 8.3 mg/dL (8.4-10.2); Carbon Dioxide 23 mmol/L (22-30); Glucose 100 mg/dL (65-100); Potassium 3.7 mmol/L (3.6-5.0); Sodium 142 mmol/L (137-145)
[2017-01-21] MEDS: LOPRESSOR PO SCH (10:21)
[2017-01-21] MEDS: PLAVIX PO SCH (10:21)
[2017-01-21] MEDS: NORVASC PO SCH (10:21)
[2017-01-21] MEDS: DITROPAN PO SCH ×2 (10:21→22:01)
[2017-01-21] MEDS: HABITROL TD SCH (10:21)
[2017-01-21] MEDS: BABY ASPIRIN PO SCH (10:22)
--- NOTE | 2017-01-21 14:23 | Progress Note ---
Assessment and Plan - Patient Problems (1) CVA (cerebral infarction) Onset Date: 11/15/13 Current Visit: Yes Status: Acute Qualifiers: Cerebral infarction mechanism: unspecified mechanism Qualified Code(s): I63.9 - Cerebral infarction, unspecified Plan to address problem: Patient did have a CVA. On aspirin statin will require OT PT. She has poor rehabilitation potential secondary to what appears to be advanced dementia have not been limited contact the family. If this is a patient baseline we'll discharge. (2) Weakness Current Visit: Yes Status: Acute Plan to address problem: Echo nearly CVA. (3) HTN (hypertension) Current Visit: Yes Status: Chronic Qualifiers: Hypertension type: essential hypertension Qualified Code(s): I10 - Essential (primary) hypertension Plan to address problem: At present very well controlled continue present medical management. (4) Alzheimers disease Onset Date: 11/15/13 Current Visit: No Status: Chronic (5) GERD (gastroesophageal reflux disease) Current Visit: No Status: Chronic History Interval history: Patient at present unable to communicate. I don't think this is new at think this is her baseline because of Zyprexa have been unable to contact any family at this time attempted to call and at [phone] left message 2. Hospitalist Physical - Constitutional Vitals: Temp Pulse Resp BP Pulse Ox 98.5 F 76 18 120/75 98 01/21/17 05:10 01/21/17 08:20 01/21/17 04:41 01/21/17 06:14 01/20/17 22:00 General appearance: Present: no acute distress, well-nourished, other (not able to communicate noncommunicative) - EENT Eyes: Present: PERRL, EOM intact - Neck Neck: Present: supple, normal ROM - Cardiovascular Rhythm: regular - Extremities Extremities: no ischemia - Abdominal General gastrointestinal: soft, non-tender, non-distended - Psychiatric Psychiatric: other (poor judgment poor cognition) - Neurologic Neurologic: focal deficits Results - Labs CBC & Chem 7: 01/21/17 06:41 01/21/17 06:41 Labs: Laboratory Last Values WBC 6.9 K/mm3 (4.5-11.0) 01/21/17 06:41 RBC 3.79 M/mm3 (3.65-5.03) 01/21/17 06:41 Hgb 12.5 gm/dl (10.1-14.3) 01/21/17 06:41 Hct 35.7 % (30.3-42.9) 01/21/17 06:41 MCV 94 fl (79-97) 01/21/17 06:41 MCH 33 pg (28-32) H 01/21/17 06:41 MCHC 35 % (30-34) H 01/21/17 06:41 RDW 14.1 % (13.2-15.2) 01/21/17 06:41 Plt Count 256 K/mm3 (140-440) 01/21/17 06:41 Lymph % (Auto) 28.5 % (13.4-35.0) 01/21/17 06:41 [place] % (Auto) 8.7 % (0.0-7.3) H 01/21/17 06:41 Eos % (Auto) 1.9 % (0.0-4.3) 01/21/17 06:41 Baso % (Auto) 0.3 % (0.0-1.8) 01/21/17 06:41 Lymph # 2.0 K/mm3 (1.2-5.4) 01/21/17 06:41 [place] # 0.6 K/mm3 (0.0-0.8) 01/21/17 06:41 Eos # 0.1 K/mm3 (0.0-0.4) 01/21/17 06:41 Baso # 0.0 K/mm3 (0.0-0.1) 01/21/17 06:41 Seg Neutrophils % 60.6 % (40.0-70.0) 01/21/17 06:41 Seg Neutrophils # 4.2 K/mm3 (1.8-7.7) 01/21/17 06:41 PT 16.3 Sec. (12.2-14.9) H 01/18/17 13:27 INR 1.25 (0.87-1.13) H 01/18/17 13:27 APTT 30.4 Sec. (24.2-36.6) 01/18/17 13:27 Thrombin Time 16.4 Sec. (15.1-19.6) 01/18/17 13:27 Sodium 142 mmol/L (137-145) 01/21/17 06:41 Potassium 3.7 mmol/L (3.6-5.0) 01/21/17 06:41 Chloride 107.0 mmol/L (98-107) 01/21/17 06:41 Carbon Dioxide 23 mmol/L (22-30) 01/21/17 06:41 Anion Gap 16 mmol/L 01/21/17 06:41 BUN 12 mg/dL (7-17) 01/21/17 06:41 Creatinine 0.8 mg/dL (0.7-1.2) 01/21/17 06:41 Estimated GFR > 60 ml/min 01/21/17 06:41 BUN/Creatinine Ratio 15 % 01/21/17 06:41 Glucose 100 mg/dL (65-100) 01/21/17 06:41 POC Glucose 153 (70-105) H 01/19/17 22:13 Calcium 8.3 mg/dL (8.4-10.2) L 01/21/17 06:41 Magnesium 2.00 mg/dL (1.7-2.3) 01/21/17 06:41 Total Bilirubin 0.50 mg/dL (0.1-1.2) 01/19/17 13:49 AST 14 units/L (5-40) 01/19/17 13:49 ALT 10 units/L (7-56) 01/19/17 13:49 Alkaline Phosphatase 156 units/L (35-129) H 01/19/17 13:49 Troponin T < 0.010 ng/mL (0.00-0.029) 01/18/17 13:27 Total Protein 6.5 g/dL (6.3-8.2) 01/19/17 13:49 Albumin 3.1 g/dL (3.9-5) L 01/19/17 13:49 Albumin/Globulin Ratio 0.9 % 01/19/17 13:49 Triglycerides 73 mg/dL (2-149) 01/20/17 04:43 Cholesterol 145 mg/dL (50-199) 01/20/17 04:43 LDL Cholesterol Direct 94 mg/dL (50-130) 01/20/17 04:43 HDL Cholesterol 37 mg/dL (40-59) L 01/20/17 04:43 Cholesterol/HDL Ratio 3.91 % 01/20/17 04:43 Urine Color Yellow (Yellow) 01/18/17 Unknown Urine Turbidity Clear (Clear) 01/18/17 Unknown Urine pH 6.0 (5.0-7.0) 01/18/17 Unknown Ur Specific [place] 1.014 (1.003-1.030) 01/18/17 Unknown Urine Protein <15 mg/dl mg/dL (Negative) 01/18/17 Unknown Urine Glucose (UA) Neg mg/dL (Negative) 01/18/17 Unknown Urine Ketones Neg mg/dL (Negative) 01/18/17 Unknown Urine Blood Neg (Negative) 01/18/17 Unknown Urine Nitrite Neg (Negative) 01/18/17 Unknown Urine Bilirubin Neg (Negative) 01/18/17 Unknown Urine Urobilinogen 4.0 mg/dL (<2.0) 01/18/17 Unknown Ur Leukocyte Esterase Neg (Negative) 01/18/17 Unknown Urine WBC (Auto) 1.0 /HPF (0.0-6.0) 01/18/17 Unknown Urine RBC (Auto) < 1.0 /HPF (0.0-6.0) 01/18/17 Unknown U Epithel Cells (Auto) < 1.0 /HPF (0-13.0) 01/18/17 Unknown Urine Mucus Few /HPF 01/18/17 Unknown
[2017-01-21] MEDS: DESYREL PO SCH (21:59)
[2017-01-21] MEDS: COGENTIN PO SCH (22:00)
[2017-01-21] MEDS: HALDOL PO SCH (22:00)
[2017-01-21] MEDS: LOVENOX SUB-Q SCH (22:00)
[2017-01-22] MEDS: APRESOLINE PO SCH ×3 (05:12→21:26)
[2017-01-22] MEDS: HABITROL TD SCH (09:17)
[2017-01-22] MEDS: BABY ASPIRIN PO SCH (09:17)
[2017-01-22] MEDS: PLAVIX PO SCH (09:17)
[2017-01-22] MEDS: DITROPAN PO SCH ×2 (09:18→21:26)
[2017-01-22] MEDS: LOPRESSOR PO SCH (09:19)
[2017-01-22] MEDS: NORVASC PO SCH (09:19)
--- NOTE | 2017-01-22 14:20 | Progress Note ---
Assessment and Plan - Patient Problems (1) CVA (cerebral infarction) Onset Date: 11/15/13 Current Visit: Yes Status: Acute Qualifiers: Cerebral infarction mechanism: unspecified mechanism Qualified Code(s): I63.9 - Cerebral infarction, unspecified Plan to address problem: Patient did have a CVA. On aspirin statin will require OT PT. She has poor rehabilitation potential secondary to what appears to be advanced dementia have not been limited contact the family. If this is a patient baseline we'll discharge.to rehab (2) Weakness Current Visit: Yes Status: Acute Plan to address problem: Echo nearly CVA. (3) HTN (hypertension) Current Visit: Yes Status: Chronic Qualifiers: Hypertension type: essential hypertension Qualified Code(s): I10 - Essential (primary) hypertension Plan to address problem: At present very well controlled continue present medical management. (4) Alzheimers disease Onset Date: 11/15/13 Current Visit: No Status: Chronic Plan to address problem: Appears to have advanced disease with mood disorder. stable (5) GERD (gastroesophageal reflux disease) Current Visit: No Status: Chronic History Interval history: Discussed with family about seeking rehabilitation. We'll speak with case management again. Hospitalist Physical - Constitutional Vitals: Temp Pulse Resp BP Pulse Ox 98.1 F 67 19 166/91 93 01/22/17 12:24 01/22/17 13:40 01/22/17 12:24 01/22/17 13:40 01/22/17 12:24 General appearance: Present: no acute distress, well-nourished, other (not able to communicate noncommunicative) - EENT Eyes: Present: PERRL, EOM intact ENT: hearing intact, clear oral mucosa, dentition normal - Neck Neck: Present: supple - Respiratory Respiratory effort: normal Respiratory: bilateral: CTA - Cardiovascular Rhythm: regular Heart Sounds: Present: S1 & S2 - Extremities Extremities: no ischemia, pulses intact Peripheral Pulses: within normal limits - Abdominal General gastrointestinal: soft, non-tender, non-distended - Psychiatric Psychiatric: other (poor cognition dementia. Asthma.) - Neurologic Neurologic: other Results - Labs CBC & Chem 7: 01/21/17 06:41 01/21/17 06:41 Labs: Laboratory Last Values WBC 6.9 K/mm3 (4.5-11.0) 01/21/17 06:41 RBC 3.79 M/mm3 (3.65-5.03) 01/21/17 06:41 Hgb 12.5 gm/dl (10.1-14.3) 01/21/17 06:41 Hct 35.7 % (30.3-42.9) 01/21/17 06:41 MCV 94 fl (79-97) 01/21/17 06:41 MCH 33 pg (28-32) H 01/21/17 06:41 MCHC 35 % (30-34) H 01/21/17 06:41 RDW 14.1 % (13.2-15.2) 01/21/17 06:41 Plt Count 256 K/mm3 (140-440) 01/21/17 06:41 Lymph % (Auto) 28.5 % (13.4-35.0) 01/21/17 06:41 [place] % (Auto) 8.7 % (0.0-7.3) H 01/21/17 06:41 Eos % (Auto) 1.9 % (0.0-4.3) 01/21/17 06:41 Baso % (Auto) 0.3 % (0.0-1.8) 01/21/17 06:41 Lymph # 2.0 K/mm3 (1.2-5.4) 01/21/17 06:41 [place] # 0.6 K/mm3 (0.0-0.8) 01/21/17 06:41 Eos # 0.1 K/mm3 (0.0-0.4) 01/21/17 06:41 Baso # 0.0 K/mm3 (0.0-0.1) 01/21/17 06:41 Seg Neutrophils % 60.6 % (40.0-70.0) 01/21/17 06:41 Seg Neutrophils # 4.2 K/mm3 (1.8-7.7) 01/21/17 06:41 PT 16.3 Sec. (12.2-14.9) H 01/18/17 13:27 INR 1.25 (0.87-1.13) H 01/18/17 13:27 APTT 30.4 Sec. (24.2-36.6) 01/18/17 13:27 Thrombin Time 16.4 Sec. (15.1-19.6) 01/18/17 13:27 Sodium 142 mmol/L (137-145) 01/21/17 06:41 Potassium 3.7 mmol/L (3.6-5.0) 01/21/17 06:41 Chloride 107.0 mmol/L (98-107) 01/21/17 06:41 Carbon Dioxide 23 mmol/L (22-30) 01/21/17 06:41 Anion Gap 16 mmol/L 01/21/17 06:41 BUN 12 mg/dL (7-17) 01/21/17 06:41 Creatinine 0.8 mg/dL (0.7-1.2) 01/21/17 06:41 Estimated GFR > 60 ml/min 01/21/17 06:41 BUN/Creatinine Ratio 15 % 01/21/17 06:41 Glucose 100 mg/dL (65-100) 01/21/17 06:41 POC Glucose 153 (70-105) H 01/19/17 22:13 Calcium 8.3 mg/dL (8.4-10.2) L 01/21/17 06:41 Magnesium 2.00 mg/dL (1.7-2.3) 01/21/17 06:41 Total Bilirubin 0.50 mg/dL (0.1-1.2) 01/19/17 13:49 AST 14 units/L (5-40) 01/19/17 13:49 ALT 10 units/L (7-56) 01/19/17 13:49 Alkaline Phosphatase 156 units/L (35-129) H 01/19/17 13:49 Troponin T < 0.010 ng/mL (0.00-0.029) 01/18/17 13:27 Total Protein 6.5 g/dL (6.3-8.2) 01/19/17 13:49 Albumin 3.1 g/dL (3.9-5) L 01/19/17 13:49 Albumin/Globulin Ratio 0.9 % 01/19/17 13:49 Triglycerides 73 mg/dL (2-149) 01/20/17 04:43 Cholesterol 145 mg/dL (50-199) 01/20/17 04:43 LDL Cholesterol Direct 94 mg/dL (50-130) 01/20/17 04:43 HDL Cholesterol 37 mg/dL (40-59) L 01/20/17 04:43 Cholesterol/HDL Ratio 3.91 % 01/20/17 04:43 Urine Color Yellow (Yellow) 01/18/17 Unknown Urine Turbidity Clear (Clear) 01/18/17 Unknown Urine pH 6.0 (5.0-7.0) 01/18/17 Unknown Ur Specific [place] 1.014 (1.003-1.030) 01/18/17 Unknown Urine Protein <15 mg/dl mg/dL (Negative) 01/18/17 Unknown Urine Glucose (UA) Neg mg/dL (Negative) 01/18/17 Unknown Urine Ketones Neg mg/dL (Negative) 01/18/17 Unknown Urine Blood Neg (Negative) 01/18/17 Unknown Urine Nitrite Neg (Negative) 01/18/17 Unknown Urine Bilirubin Neg (Negative) 01/18/17 Unknown Urine Urobilinogen 4.0 mg/dL (<2.0) 01/18/17 Unknown Ur Leukocyte Esterase Neg (Negative) 01/18/17 Unknown Urine WBC (Auto) 1.0 /HPF (0.0-6.0) 01/18/17 Unknown Urine RBC (Auto) < 1.0 /HPF (0.0-6.0) 01/18/17 Unknown U Epithel Cells (Auto) < 1.0 /HPF (0-13.0) 01/18/17 Unknown Urine Mucus Few /HPF 01/18/17 Unknown
[2017-01-22] MEDS: DESYREL PO SCH (21:26)
[2017-01-22] MEDS: HALDOL PO SCH (21:27)
[2017-01-22] MEDS: COGENTIN PO SCH (21:28)
[2017-01-22] MEDS: LOVENOX SUB-Q SCH (21:28)
[2017-01-23] MEDS: APRESOLINE PO SCH ×3 (06:25→22:58)
[2017-01-23] MEDS: BABY ASPIRIN PO SCH (10:01)
[2017-01-23] MEDS: DITROPAN PO SCH ×2 (10:01→22:58)
[2017-01-23] MEDS: HABITROL TD SCH (10:02)
[2017-01-23] MEDS: LOPRESSOR PO SCH (10:03)
[2017-01-23] MEDS: NORVASC PO SCH (10:03)
[2017-01-23] MEDS: PLAVIX PO SCH (10:04)
--- NOTE | 2017-01-23 14:00 | XRay Report ---
AP chest x-ray. Findings: The heart and lungs reveal no acute findings or interval changes since January 18, 2017.
--- NOTE | 2017-01-23 16:21 | Progress Note ---
Assessment and Plan Assessment and plan: Acute CVA - 1 cm focus of subacute ischemia in the left lateral frontal lobe cortex - Continue on aspirin, Plavix and statin - Patient need speech evaluation Weakness - PT or to consult Dementia - Supportive care HTN - continue current regimen Disposition - Pending sub acute rehab placement History Interval history: Patient was seen and evaluated this morning, patient doesn't follow commands. Right-sided hemiparesis. Hospitalist Physical - Physical exam Narrative exam: Not in cardiopulmonary distress. The patient appeared well nourished and normally developed. Vital signs as documented. Head exam is unremarkable. No scleral icterus . Neck is without jugular venous distension, thyromegaly, or carotid bruits. Lungs are clear to auscultation. Cardiac exam reveals regular rate and Rhythm. First and second heart sounds normal. No murmurs, rubs or gallops. Abdominal exam reveals normal bowel sounds, no masses, no organomegaly and no aortic enlargement. Extremities are nonedematous and both femoral and pedal pulses are normal. 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 - Constitutional Vitals: Temp Pulse Resp BP Pulse Ox 97.7 F 82 18 142/89 96 01/23/17 03:56 01/23/17 10:30 01/23/17 03:56 01/23/17 10:03 01/23/17 03:56 General appearance: Present: no acute distress, well-nourished, other (not able to communicate noncommunicative) Results - Labs CBC & Chem 7: 01/21/17 06:41 01/21/17 06:41 Labs: Laboratory Last Values WBC 6.9 K/mm3 (4.5-11.0) 01/21/17 06:41 RBC 3.79 M/mm3 (3.65-5.03) 01/21/17 06:41 Hgb 12.5 gm/dl (10.1-14.3) 01/21/17 06:41 Hct 35.7 % (30.3-42.9) 01/21/17 06:41 MCV 94 fl (79-97) 01/21/17 06:41 MCH 33 pg (28-32) H 01/21/17 06:41 MCHC 35 % (30-34) H 01/21/17 06:41 RDW 14.1 % (13.2-15.2) 01/21/17 06:41 Plt Count 256 K/mm3 (140-440) 01/21/17 06:41 Lymph % (Auto) 28.5 % (13.4-35.0) 01/21/17 06:41 [place] % (Auto) 8.7 % (0.0-7.3) H 01/21/17 06:41 Eos % (Auto) 1.9 % (0.0-4.3) 01/21/17 06:41 Baso % (Auto) 0.3 % (0.0-1.8) 01/21/17 06:41 Lymph # 2.0 K/mm3 (1.2-5.4) 01/21/17 06:41 [place] # 0.6 K/mm3 (0.0-0.8) 01/21/17 06:41 Eos # 0.1 K/mm3 (0.0-0.4) 01/21/17 06:41 Baso # 0.0 K/mm3 (0.0-0.1) 01/21/17 06:41 Seg Neutrophils % 60.6 % (40.0-70.0) 01/21/17 06:41 Seg Neutrophils # 4.2 K/mm3 (1.8-7.7) 01/21/17 06:41 PT 16.3 Sec. (12.2-14.9) H 01/18/17 13:27 INR 1.25 (0.87-1.13) H 01/18/17 13:27 APTT 30.4 Sec. (24.2-36.6) 01/18/17 13:27 Thrombin Time 16.4 Sec. (15.1-19.6) 01/18/17 13:27 Sodium 142 mmol/L (137-145) 01/21/17 06:41 Potassium 3.7 mmol/L (3.6-5.0) 01/21/17 06:41 Chloride 107.0 mmol/L (98-107) 01/21/17 06:41 Carbon Dioxide 23 mmol/L (22-30) 01/21/17 06:41 Anion Gap 16 mmol/L 01/21/17 06:41 BUN 12 mg/dL (7-17) 01/21/17 06:41 Creatinine 0.8 mg/dL (0.7-1.2) 01/21/17 06:41 Estimated GFR > 60 ml/min 01/21/17 06:41 BUN/Creatinine Ratio 15 % 01/21/17 06:41 Glucose 100 mg/dL (65-100) 01/21/17 06:41 POC Glucose 153 (70-105) H 01/19/17 22:13 Calcium 8.3 mg/dL (8.4-10.2) L 01/21/17 06:41 Magnesium 2.00 mg/dL (1.7-2.3) 01/21/17 06:41 Total Bilirubin 0.50 mg/dL (0.1-1.2) 01/19/17 13:49 AST 14 units/L (5-40) 01/19/17 13:49 ALT 10 units/L (7-56) 01/19/17 13:49 Alkaline Phosphatase 156 units/L (35-129) H 01/19/17 13:49 Troponin T < 0.010 ng/mL (0.00-0.029) 01/18/17 13:27 Total Protein 6.5 g/dL (6.3-8.2) 01/19/17 13:49 Albumin 3.1 g/dL (3.9-5) L 01/19/17 13:49 Albumin/Globulin Ratio 0.9 % 01/19/17 13:49 Triglycerides 73 mg/dL (2-149) 01/20/17 04:43 Cholesterol 145 mg/dL (50-199) 01/20/17 04:43 LDL Cholesterol Direct 94 mg/dL (50-130) 01/20/17 04:43 HDL Cholesterol 37 mg/dL (40-59) L 01/20/17 04:43 Cholesterol/HDL Ratio 3.91 % 01/20/17 04:43 Urine Color Yellow (Yellow) 01/18/17 Unknown Urine Turbidity Clear (Clear) 01/18/17 Unknown Urine pH 6.0 (5.0-7.0) 01/18/17 Unknown Ur Specific [place] 1.014 (1.003-1.030) 01/18/17 Unknown Urine Protein <15 mg/dl mg/dL (Negative) 01/18/17 Unknown Urine Glucose (UA) Neg mg/dL (Negative) 01/18/17 Unknown Urine Ketones Neg mg/dL (Negative) 01/18/17 Unknown Urine Blood Neg (Negative) 01/18/17 Unknown Urine Nitrite Neg (Negative) 01/18/17 Unknown Urine Bilirubin Neg (Negative) 01/18/17 Unknown Urine Urobilinogen 4.0 mg/dL (<2.0) 01/18/17 Unknown Ur Leukocyte Esterase Neg (Negative) 01/18/17 Unknown Urine WBC (Auto) 1.0 /HPF (0.0-6.0) 01/18/17 Unknown Urine RBC (Auto) < 1.0 /HPF (0.0-6.0) 01/18/17 Unknown U Epithel Cells (Auto) < 1.0 /HPF (0-13.0) 01/18/17 Unknown Urine Mucus Few /HPF 01/18/17 Unknown
[2017-01-23] MEDS: LOVENOX SUB-Q SCH (22:56)
[2017-01-23] MEDS: HALDOL PO SCH (22:57)
[2017-01-23] MEDS: COGENTIN PO SCH (22:57)
[2017-01-23] MEDS: DESYREL PO SCH (22:57)
[2017-01-24] MEDS: APRESOLINE PO SCH ×3 (06:28→23:34)
[2017-01-24 07:09] LABS: Basophils % (Auto) 0.2 % (0.0-1.8); Eosinophils % (Auto) 1.7 % (0.0-4.3); Hematocrit 38.5 % (30.3-42.9); Hemoglobin 13.2 gm/dl (10.1-14.3); Mean Corpuscular HGB Conc 34 % (30-34); Mean Corpuscular Hemoglobin 33 pg (28-32); Mean Corpuscular Volume 95 fl (79-97); Platelet Count 306 K/mm3 (140-440); Red Blood Count 4.03 M/mm3 (3.65-5.03); Red Cell Distribution Width 14.2 % (13.2-15.2); White Blood Count 7.2 K/mm3 (4.5-11.0)
[2017-01-24 07:27] LABS: Anion Gap 17 mmol/L; BUN/Creatinine Ratio 19; Blood Urea Nitrogen 15 mg/dL (7-17); Calcium 8.6 mg/dL (8.4-10.2); Carbon Dioxide 22 mmol/L (22-30); Glucose 103 mg/dL (65-100); Potassium 4.2 mmol/L (3.6-5.0); Sodium 138 mmol/L (137-145)
[2017-01-24] MEDS: DITROPAN PO SCH ×2 (11:00→23:34)
[2017-01-24] MEDS: BABY ASPIRIN PO SCH (11:00)
[2017-01-24] MEDS: HABITROL TD SCH (11:00)
[2017-01-24] MEDS: PLAVIX PO SCH (11:00)
[2017-01-24] MEDS: NORVASC PO SCH (11:00)
[2017-01-24] MEDS: LOPRESSOR PO SCH (11:00)
--- NOTE | 2017-01-24 11:54 | Discharge Summary ---
Providers - Providers Date of Admission: 01/19/17 00:41 Attending physician: MCKENNA KAPLAN MD 01/19/17 00:41 Occupational Therapy Evaluate and Treat [CONS] Routine Comment: Reason For Exam: Neuro deficits Physical Therapy Evaluation and Treat [CONS] Routine Comment: Reason For Exam: Neuro deficits 01/19/17 12:00 Consult to Physician [CONS] Urgent Consulting Provider: RAVEN HAN Reason For Exam: Acute CVA Notified:: Yes 01/23/17 11:28 Speech Therapy Evaluation and Treat [CONS] Urgent Reason For Exam: cva Primary care physician: ANETA HUSAIN Hospitalization Reason for admission: Acute CVA Condition: Stable Disposition: DC/[place]-03 [facility] Time spent for discharge: 31 minutes - Discharge Diagnoses (1) CVA (cerebral infarction) Status: Acute Qualifiers: Cerebral infarction mechanism: unspecified mechanism Qualified Code(s): I63.9 - Cerebral infarction, unspecified Comment: Improved a lot (2) Weakness Status: Acute (3) HTN (hypertension) Status: Chronic Qualifiers: Hypertension type: essential hypertension Qualified Code(s): I10 - Essential (primary) hypertension (4) Alzheimers disease Status: Chronic (5) GERD (gastroesophageal reflux disease) Status: Chronic Core Measure Documentation - Palliative Care Palliative Care/ Comfort Measures: Not Applicable - Core Measures Any of the following diagnoses?: stroke - Stroke Discharge Requirements Statin for LDL = or >70 mg/dl on DC: Yes Anticoag for atrial fib/atrial flutter: Not Applicable Antithrombotic for ischemic stroke: Yes Exam - Physical Exam Narrative exam: Not in cardiopulmonary distress. The patient appeared well nourished and normally developed. Vital signs as documented. Head exam is unremarkable. No scleral icterus . Neck is without jugular venous distension, thyromegaly, or carotid bruits. Lungs are clear to auscultation. Cardiac exam reveals regular rate and Rhythm. First and second heart sounds normal. No murmurs, rubs or gallops. Abdominal exam reveals normal bowel sounds, no masses, no organomegaly and no aortic enlargement. Extremities are nonedematous and both femoral and pedal pulses are normal. 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 - Constitutional Vitals: Temp Pulse Resp BP Pulse Ox 97.3 F L 82 18 123/62 96 01/24/17 08:43 01/24/17 11:00 01/24/17 08:43 01/24/17 11:00 01/24/17 08:43 Plan Activity: advance as tolerated Weight Bearing Status: Non-Weight Bearing Diet: per dietitian instruction Follow up with: ANETA HUSAIN MD [Primary Care Provider] - 3-5 Days Prescriptions: hydrALAZINE [Apresoline TAB] 25 mg PO Q8HR #30 tablet
--- NOTE | 2017-01-24 14:46 | Cat Scan Report ---
CT HEAD WITHOUT CONTRAST: HISTORY: CVA. TECHNIQUE: Sequential 2.5mm CT images. COMPARISON: 01/18/17. FINDINGS: Cerebral Parenchyma: There are multiple bilateral chronic lacunar infarcts in both anterior basal ganglia which are unchanged since 01/18/17. No evidence for hemorrhage, mass or new area of diminished attenuation. Cerebellum: Within normal limits. Brainstem: Within normal limits. Ventricles: Normal. Sella: Normal. Extra-axial spaces: Normal. Basal Cisterns: Normal. Intracranial Hemorrhage: None. Midline Shift: None. Calvarium: Normal. Sinuses: Normal. Mastoid Air Cells: Normal. Visualized Orbits: Normal. IMPRESSION: Chronic lacunar infarcts in both basal ganglia. No acute intracranial process. No significant change since 01/18/17.
--- NOTE | 2017-01-24 15:18 | Progress Note ---
Assessment and Plan Assessment and plan: Acute CVA - 1 cm focus of subacute ischemia in the left lateral frontal lobe cortex - Continue on aspirin, Plavix and statin - Repeat CT head showed no change Patient is not able to eat - GI consult placed for possible PEG placement Weakness - PT or to consult Dementia - Supportive care HTN - continue current regimen Disposition - Consider discharge after evaluated by GI for PEG tube placement. I have called her daughter Rupali [phone] and discussed the management plan. - Patient Problems (1) CVA (cerebral infarction) Onset Date: 11/15/13 Current Visit: Yes Status: Acute Qualifiers: Cerebral infarction mechanism: unspecified mechanism Qualified Code(s): I63.9 - Cerebral infarction, unspecified (2) Weakness Current Visit: Yes Status: Acute (3) HTN (hypertension) Current Visit: Yes Status: Chronic Qualifiers: Hypertension type: essential hypertension Qualified Code(s): I10 - Essential (primary) hypertension (4) Alzheimers disease Onset Date: 11/15/13 Current Visit: No Status: Chronic (5) GERD (gastroesophageal reflux disease) Current Visit: No Status: Chronic History Interval history: Patient was seen and evaluated this morning, patient didn't follow commands. Right-sided hemiparesis. Per patient's nurse, patient is not able to eat Hospitalist Physical - Physical exam Narrative exam: Not in cardiopulmonary distress. The patient appeared well nourished and normally developed. Vital signs as documented. Head exam is unremarkable. No scleral icterus . Neck is without jugular venous distension, thyromegaly, or carotid bruits. Lungs are clear to auscultation. Cardiac exam reveals regular rate and Rhythm. First and second heart sounds normal. No murmurs, rubs or gallops. Abdominal exam reveals normal bowel sounds, no masses, no organomegaly and no aortic enlargement. Extremities are nonedematous and both femoral and pedal pulses are normal. 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 Patient is noncommunicative. - Constitutional Vitals: Temp Pulse Resp BP Pulse Ox 97.6 F 77 18 99/57 98 01/24/17 12:40 01/24/17 12:40 01/24/17 12:40 01/24/17 12:40 01/24/17 12:40 General appearance: Present: no acute distress, well-nourished, other (not able to communicate noncommunicative) Results - Labs CBC & Chem 7: 01/24/17 06:06 01/24/17 06:06 Labs: Laboratory Last Values WBC 7.2 K/mm3 (4.5-11.0) 01/24/17 06:06 RBC 4.03 M/mm3 (3.65-5.03) 01/24/17 06:06 Hgb 13.2 gm/dl (10.1-14.3) 01/24/17 06:06 Hct 38.5 % (30.3-42.9) 01/24/17 06:06 MCV 95 fl (79-97) 01/24/17 06:06 MCH 33 pg (28-32) H 01/24/17 06:06 MCHC 34 % (30-34) 01/24/17 06:06 RDW 14.2 % (13.2-15.2) 01/24/17 06:06 Plt Count 306 K/mm3 (140-440) 01/24/17 06:06 Lymph % (Auto) 29.9 % (13.4-35.0) 01/24/17 06:06 [place] % (Auto) 8.1 % (0.0-7.3) H 01/24/17 06:06 Eos % (Auto) 1.7 % (0.0-4.3) 01/24/17 06:06 Baso % (Auto) 0.2 % (0.0-1.8) 01/24/17 06:06 Lymph # 2.1 K/mm3 (1.2-5.4) 01/24/17 06:06 [place] # 0.6 K/mm3 (0.0-0.8) 01/24/17 06:06 Eos # 0.1 K/mm3 (0.0-0.4) 01/24/17 06:06 Baso # 0.0 K/mm3 (0.0-0.1) 01/24/17 06:06 Seg Neutrophils % 60.1 % (40.0-70.0) 01/24/17 06:06 Seg Neutrophils # 4.3 K/mm3 (1.8-7.7) 01/24/17 06:06 PT 16.3 Sec. (12.2-14.9) H 01/18/17 13:27 INR 1.25 (0.87-1.13) H 01/18/17 13:27 APTT 30.4 Sec. (24.2-36.6) 01/18/17 13:27 Thrombin Time 16.4 Sec. (15.1-19.6) 01/18/17 13:27 Sodium 138 mmol/L (137-145) 01/24/17 06:06 Potassium 4.2 mmol/L (3.6-5.0) 01/24/17 06:06 Chloride 103.0 mmol/L (98-107) 01/24/17 06:06 Carbon Dioxide 22 mmol/L (22-30) 01/24/17 06:06 Anion Gap 17 mmol/L 01/24/17 06:06 BUN 15 mg/dL (7-17) 01/24/17 06:06 Creatinine 0.8 mg/dL (0.7-1.2) 01/24/17 06:06 Estimated GFR > 60 ml/min 01/24/17 06:06 BUN/Creatinine Ratio 19 % 01/24/17 06:06 Glucose 103 mg/dL (65-100) H 01/24/17 06:06 POC Glucose 98 (70-105) 01/24/17 08:50 Calcium 8.6 mg/dL (8.4-10.2) 01/24/17 06:06 Magnesium 2.00 mg/dL (1.7-2.3) 01/21/17 06:41 Total Bilirubin 0.50 mg/dL (0.1-1.2) 01/19/17 13:49 AST 14 units/L (5-40) 01/19/17 13:49 ALT 10 units/L (7-56) 01/19/17 13:49 Alkaline Phosphatase 156 units/L (35-129) H 01/19/17 13:49 Troponin T < 0.010 ng/mL (0.00-0.029) 01/18/17 13:27 Total Protein 6.5 g/dL (6.3-8.2) 01/19/17 13:49 Albumin 3.1 g/dL (3.9-5) L 01/19/17 13:49 Albumin/Globulin Ratio 0.9 % 01/19/17 13:49 Triglycerides 73 mg/dL (2-149) 01/20/17 04:43 Cholesterol 145 mg/dL (50-199) 01/20/17 04:43 LDL Cholesterol Direct 94 mg/dL (50-130) 01/20/17 04:43 HDL Cholesterol 37 mg/dL (40-59) L 01/20/17 04:43 Cholesterol/HDL Ratio 3.91 % 01/20/17 04:43 Urine Color Yellow (Yellow) 01/18/17 Unknown Urine Turbidity Clear (Clear) 01/18/17 Unknown Urine pH 6.0 (5.0-7.0) 01/18/17 Unknown Ur Specific [place] 1.014 (1.003-1.030) 01/18/17 Unknown Urine Protein <15 mg/dl mg/dL (Negative) 01/18/17 Unknown Urine Glucose (UA) Neg mg/dL (Negative) 01/18/17 Unknown Urine Ketones Neg mg/dL (Negative) 01/18/17 Unknown Urine Blood Neg (Negative) 01/18/17 Unknown Urine Nitrite Neg (Negative) 01/18/17 Unknown Urine Bilirubin Neg (Negative) 01/18/17 Unknown Urine Urobilinogen 4.0 mg/dL (<2.0) 01/18/17 Unknown Ur Leukocyte Esterase Neg (Negative) 01/18/17 Unknown Urine WBC (Auto) 1.0 /HPF (0.0-6.0) 01/18/17 Unknown Urine RBC (Auto) < 1.0 /HPF (0.0-6.0) 01/18/17 Unknown U Epithel Cells (Auto) < 1.0 /HPF (0-13.0) 01/18/17 Unknown Urine Mucus Few /HPF 01/18/17 Unknown
[2017-01-24] MEDS: DESYREL PO SCH (23:34)
[2017-01-24] MEDS: COGENTIN PO SCH (23:35)
[2017-01-24] MEDS: HALDOL PO SCH (23:35)
[2017-01-24] MEDS: LOVENOX SUB-Q SCH (23:36)
[2017-01-25 06:30] LABS: Anion Gap 19 mmol/L; BUN/Creatinine Ratio 19; Blood Urea Nitrogen 17 mg/dL (7-17); Calcium 9.1 mg/dL (8.4-10.2); Carbon Dioxide 23 mmol/L (22-30); Chloride 102.7 mmol/L (98-107); Glucose 117 mg/dL (65-100); Potassium 4.6 mmol/L (3.6-5.0); Sodium 140 mmol/L (137-145)
[2017-01-25] MEDS: APRESOLINE PO SCH ×3 (07:02→21:44)
--- NOTE | 2017-01-25 08:04 | Vascular Lab Report ---
CAROTID DUPLEX STUDY: RIGHT PSVEDV CCA PROX:836 CCA DIST:718 ICA PROX:536 ICA MID:9023 ICA DIST:6111 ECA: 809 VERT: 55 6 LEFT PSVEDV CCA PROX:8011 CCA DIST:435 ICA PROX:4910 ICA MID:9315 ICA DIST:56042 ECA: 757 VERT: 49 12 REASON FOR EXAM: Stroke. COMMENTS ON THE RIGHT: Doppler frequency analysis is consistent with 16 to 49 percent diameter reduction of the internal carotid artery. Minimal amount of plaque is seen. The common carotid artery is patent. The external carotid artery is patent. The vertebral artery has antegrade flow. COMMENTS ON THE LEFT: Doppler frequency analysis is consistent with 16 to 49 percent diameter reduction of the internal carotid artery. Minimal amount of plaque is seen. The common carotid artery is patent. The external carotid artery is patent. The vertebral artery has antegrade flow. IMPRESSION: Less than 50% diameter reduction in the internal carotid arteries bilaterally. Consider repeat carotid artery duplex in 12 months.
[2017-01-25] MEDS: HABITROL TD SCH (10:52)
[2017-01-25] MEDS: BABY ASPIRIN PO SCH (10:52)
[2017-01-25] MEDS: PLAVIX PO SCH (10:52)
[2017-01-25] MEDS: NORVASC PO SCH (10:53)
[2017-01-25] MEDS: LOPRESSOR PO SCH (10:53)
[2017-01-25] MEDS: DITROPAN PO SCH ×2 (10:54→21:43)
--- NOTE | 2017-01-25 11:52 | Gastroenterology Consultation ---
History of Present Illness - Reason for Consult Consult date: 01/25/17 PEG placement Requesting physician: MCKENNA KAPLAN - History of Present Illness Patient is a 66 y/o female with PMH of HTN, stroke, HLD, and nicotine dependence who presented to the ED with lethargy, diminished cognition, slurred speech, and new onset right sided weakness. She was admitted for an acute CVA. GI has been consulted for PEG placement. Speech recommended puree diet after evaluation yesterday, however nursing reports pt is unable to eat. This morning was resting in bed. Unable to communicate or follow commands. No family at bedside. History obtained via chart review. Past History Past Medical History: hypertension, hyperlipidemia, stroke Past Surgical History: Other (Left knee, ear surgery) Social history: single, smoking Family history: diabetes, hypertension Medications and Allergies Allergies Allergy/AdvReac Type Severity Reaction Status Date / Time Penicillins Allergy Itching Verified 11/14/13 20:01 Home Medications Medication Instructions Recorded Confirmed Last Taken Type Atorvastatin [Lipitor] 40 mg PO QHS #30 tablet 11/21/13 01/19/17 Unknown Rx Benztropine [Cogentin] 3 mg PO QHS #30 tablet 11/21/13 01/19/17 Unknown Rx Clopidogrel [Plavix] 75 mg PO QDAY #30 tablet 11/21/13 01/19/17 Unknown Rx Haloperidol [Haldol] 5 mg PO QHS #30 tablet 11/21/13 01/19/17 Unknown Rx Metoprolol [Lopressor TAB] 100 mg PO DAILY #30 tablet 11/21/13 01/19/17 Unknown Rx OLANzapine [Zyprexa] 10 mg PO QHS #30 tablet 11/21/13 01/19/17 Unknown Rx Oxybutynin [Ditropan] 5 mg PO BID #60 tablet 11/21/13 01/19/17 Unknown Rx Trazodone HCl [traZODone] 100 mg PO QHS #30 tablet 11/21/13 01/19/17 Unknown Rx amLODIPine [Norvasc] 10 mg PO DAILY #30 tablet 11/21/13 01/19/17 Unknown Rx Aspirin [Aspirin BABY CHEW TAB] 81 mg PO QDAY tab.chew 01/24/17 Unknown Rx Nicotine [Habitrol] 14 mg TD QDAY patch 01/24/17 Unknown Rx hydrALAZINE [Apresoline TAB] 25 mg PO Q8HR #30 tablet 01/24/17 Unknown Rx Active Meds: Active Medications Acetaminophen (Tylenol) 650 mg PO Q4H PRN PRN Reason: Pain, Mild (1-3) Amlodipine Besylate (Norvasc) 10 mg PO QDAY [facility] Last Admin: 01/25/17 10:53 Dose: 10 mg Aspirin (Baby Aspirin) 81 mg PO QDAY [facility] Last Admin: 01/25/17 10:52 Dose: 81 mg Atorvastatin Calcium (Lipitor) 40 mg PO QHS [facility] Last Admin: 01/24/17 23:33 Dose: 40 mg Benztropine Mesylate (Cogentin) 3 mg PO QHS [facility] Last Admin: 01/24/17 23:35 Dose: 3 mg Bisacodyl (Dulcolax) 10 mg [place] QDAY PRN PRN Reason: Constipation Clopidogrel Bisulfate (Plavix) 75 mg PO QDAY [facility] Last Admin: 01/25/17 10:52 Dose: 75 mg Enoxaparin Sodium (Lovenox) 40 mg SUB-Q QDAY@2199 [facility] Last Admin: 01/24/17 23:36 Dose: 40 mg Haloperidol (Haldol) 5 mg PO QHS [facility] Last Admin: 01/24/17 23:35 Dose: 5 mg Hydralazine HCl (Apresoline) 10 mg IV Q4HR PRN PRN Reason: Hypertension Hydralazine HCl (Apresoline) 25 mg PO Q8HR [facility] Last Admin: 01/25/17 07:02 Dose: 25 mg Magnesium Hydroxide (Milk Of Magnesia) 30 ml PO Q4H PRN PRN Reason: Constipation Metoclopramide HCl (Reglan) 10 mg PO Q6H PRN PRN Reason: Nausea And Vomiting Metoprolol Tartrate (Lopressor) 100 mg PO QDAY [facility] Last Admin: 01/25/17 10:53 Dose: 100 mg Nicotine (Habitrol) 14 mg TD QDAY [facility] Last Admin: 01/25/17 10:52 Dose: 14 mg Olanzapine (Zyprexa) 10 mg PO QHS [facility] Last Admin: 01/24/17 23:35 Dose: 10 mg Ondansetron HCl (Zofran) 4 mg IV Q8H PRN PRN Reason: N/V unrelieved by Reglan Oxybutynin Chloride (Ditropan) 5 mg PO BID [facility] Last Admin: 01/25/17 10:54 Dose: 5 mg Promethazine HCl (Phenergan) 25 mg [place] Q6H PRN PRN Reason: Nausea And Vomiting Sodium Chloride (Sodium Chloride Flush Syringe 10 Ml) 10 ml IV PRN PRN PRN Reason: LINE FLUSH Trazodone HCl (Desyrel) 100 mg PO QHS [facility] Last Admin: 01/24/17 23:34 Dose: 100 mg Review of Systems - Review of Systems ROS unobtainable: due to mental status Exam - Constitutional Vital Signs: Temp Pulse Resp BP Pulse Ox 97.3 F L 92 H 20 146/73 98 01/25/17 09:50 01/25/17 10:53 01/25/17 09:50 01/25/17 10:53 01/25/17 09:50 General appearance: no acute distress, other (nonverbal, unable to follow commands) - Respiratory Respiratory: bilateral: CTA - Cardiovascular Rhythm: regular Heart Sounds: Present: S1 & S2 - Gastrointestinal General gastrointestinal: Present: soft, non-distended, normal bowel sounds - Integumentary Integumentary: Present: warm, dry - Neurologic Neurological: other (Right-sided hemiparesis with facial palsy) - Labs CBC & Chem 7: 01/24/17 06:06 01/25/17 05:50 Lab Results: Laboratory Results - last 24 hr 01/24/17 01/24/17 01/24/17 13:10 16:47 22:19 Sodium Potassium Chloride Carbon Dioxide Anion Gap BUN Creatinine Estimated GFR BUN/Creatinine Ratio Glucose POC Glucose 124 H 172 H 129 H Calcium 01/25/17 01/25/17 05:50 08:13 Sodium 140 Potassium 4.6 Chloride 102.7 Carbon Dioxide 23 Anion Gap 19 BUN 17 Creatinine 0.9 Estimated GFR > 60 BUN/Creatinine Ratio 19 Glucose 117 H POC Glucose 105 Calcium 9.1 Assessment and Plan 1.PEG placement -speech recommended puree diet after eval yesterday, however nursing reports pt is unable to eat -Will schedule for EGD/PEG placement in am pending family consent -attempted to call pt's daughter (Rupali Rico [phone]) to discuss PEG, however she did not answer -NPO after MN -PT/INR in am -hold am dose of plavix -will follow
--- NOTE | 2017-01-25 17:46 | Progress Note ---
Assessment and Plan Assessment and plan: Acute CVA - 1 cm focus of subacute ischemia in the left lateral frontal lobe cortex - Continue on aspirin, Plavix and statin - Repeat CT head showed no change Patient is not able to eat - GI consult and will put PEG tomorrow Weakness - PT or to consult Dementia - Supportive care HTN - continue current regimen Disposition - Consider discharge after PEG tube placement. I have called her daughter Rupali [phone] and discussed the management plan. - Patient Problems (1) CVA (cerebral infarction) Onset Date: 11/15/13 Current Visit: Yes Status: Acute Qualifiers: Cerebral infarction mechanism: unspecified mechanism Qualified Code(s): I63.9 - Cerebral infarction, unspecified (2) Weakness Current Visit: Yes Status: Acute (3) HTN (hypertension) Current Visit: Yes Status: Chronic Qualifiers: Hypertension type: essential hypertension Qualified Code(s): I10 - Essential (primary) hypertension (4) Alzheimers disease Onset Date: 11/15/13 Current Visit: No Status: Chronic (5) GERD (gastroesophageal reflux disease) Current Visit: No Status: Chronic History Interval history: Patient was seen and evaluated this morning, patient didn't communicate. Right- sided hemiparesis. Per patient's nurse, patient is not able to eat. Hospitalist Physical - Physical exam Narrative exam: Not in cardiopulmonary distress. The patient appeared well nourished and normally developed. Vital signs as documented. Head exam is unremarkable. No scleral icterus . Neck is without jugular venous distension, thyromegaly, or carotid bruits. Lungs are clear to auscultation. Cardiac exam reveals regular rate and Rhythm. First and second heart sounds normal. No murmurs, rubs or gallops. Abdominal exam reveals normal bowel sounds, no masses, no organomegaly and no aortic enlargement. Extremities are nonedematous and both femoral and pedal pulses are normal. 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 Patient is noncommunicative. - Constitutional Vitals: Temp Pulse Resp BP Pulse Ox 97.3 F L 93 H 20 140/53 93 01/25/17 13:24 01/25/17 15:00 01/25/17 13:24 01/25/17 15:00 01/25/17 13:24 General appearance: Present: no acute distress, well-nourished, other (not able to communicate noncommunicative) Results - Labs CBC & Chem 7: 01/24/17 06:06 01/25/17 05:50 Labs: Laboratory Last Values WBC 7.2 K/mm3 (4.5-11.0) 01/24/17 06:06 RBC 4.03 M/mm3 (3.65-5.03) 01/24/17 06:06 Hgb 13.2 gm/dl (10.1-14.3) 01/24/17 06:06 Hct 38.5 % (30.3-42.9) 01/24/17 06:06 MCV 95 fl (79-97) 01/24/17 06:06 MCH 33 pg (28-32) H 01/24/17 06:06 MCHC 34 % (30-34) 01/24/17 06:06 RDW 14.2 % (13.2-15.2) 01/24/17 06:06 Plt Count 306 K/mm3 (140-440) 01/24/17 06:06 Lymph % (Auto) 29.9 % (13.4-35.0) 01/24/17 06:06 [place] % (Auto) 8.1 % (0.0-7.3) H 01/24/17 06:06 Eos % (Auto) 1.7 % (0.0-4.3) 01/24/17 06:06 Baso % (Auto) 0.2 % (0.0-1.8) 01/24/17 06:06 Lymph # 2.1 K/mm3 (1.2-5.4) 01/24/17 06:06 [place] # 0.6 K/mm3 (0.0-0.8) 01/24/17 06:06 Eos # 0.1 K/mm3 (0.0-0.4) 01/24/17 06:06 Baso # 0.0 K/mm3 (0.0-0.1) 01/24/17 06:06 Seg Neutrophils % 60.1 % (40.0-70.0) 01/24/17 06:06 Seg Neutrophils # 4.3 K/mm3 (1.8-7.7) 01/24/17 06:06 PT 16.3 Sec. (12.2-14.9) H 01/18/17 13:27 INR 1.25 (0.87-1.13) H 01/18/17 13:27 APTT 30.4 Sec. (24.2-36.6) 01/18/17 13:27 Thrombin Time 16.4 Sec. (15.1-19.6) 01/18/17 13:27 Sodium 140 mmol/L (137-145) 01/25/17 05:50 Potassium 4.6 mmol/L (3.6-5.0) 01/25/17 05:50 Chloride 102.7 mmol/L (98-107) 01/25/17 05:50 Carbon Dioxide 23 mmol/L (22-30) 01/25/17 05:50 Anion Gap 19 mmol/L 01/25/17 05:50 BUN 17 mg/dL (7-17) 01/25/17 05:50 Creatinine 0.9 mg/dL (0.7-1.2) 01/25/17 05:50 Estimated GFR > 60 ml/min 01/25/17 05:50 BUN/Creatinine Ratio 19 % 01/25/17 05:50 Glucose 117 mg/dL (65-100) H 01/25/17 05:50 POC Glucose 116 (70-105) H 01/25/17 12:42 Calcium 9.1 mg/dL (8.4-10.2) 01/25/17 05:50 Magnesium 2.00 mg/dL (1.7-2.3) 01/21/17 06:41 Total Bilirubin 0.50 mg/dL (0.1-1.2) 01/19/17 13:49 AST 14 units/L (5-40) 01/19/17 13:49 ALT 10 units/L (7-56) 01/19/17 13:49 Alkaline Phosphatase 156 units/L (35-129) H 01/19/17 13:49 Troponin T < 0.010 ng/mL (0.00-0.029) 01/18/17 13:27 Total Protein 6.5 g/dL (6.3-8.2) 01/19/17 13:49 Albumin 3.1 g/dL (3.9-5) L 01/19/17 13:49 Albumin/Globulin Ratio 0.9 % 01/19/17 13:49 Triglycerides 73 mg/dL (2-149) 01/20/17 04:43 Cholesterol 145 mg/dL (50-199) 01/20/17 04:43 LDL Cholesterol Direct 94 mg/dL (50-130) 01/20/17 04:43 HDL Cholesterol 37 mg/dL (40-59) L 01/20/17 04:43 Cholesterol/HDL Ratio 3.91 % 01/20/17 04:43 Urine Color Yellow (Yellow) 01/18/17 Unknown Urine Turbidity Clear (Clear) 01/18/17 Unknown Urine pH 6.0 (5.0-7.0) 01/18/17 Unknown Ur Specific [place] 1.014 (1.003-1.030) 01/18/17 Unknown Urine Protein <15 mg/dl mg/dL (Negative) 01/18/17 Unknown Urine Glucose (UA) Neg mg/dL (Negative) 01/18/17 Unknown Urine Ketones Neg mg/dL (Negative) 01/18/17 Unknown Urine Blood Neg (Negative) 01/18/17 Unknown Urine Nitrite Neg (Negative) 01/18/17 Unknown Urine Bilirubin Neg (Negative) 01/18/17 Unknown Urine Urobilinogen 4.0 mg/dL (<2.0) 01/18/17 Unknown Ur Leukocyte Esterase Neg (Negative) 01/18/17 Unknown Urine WBC (Auto) 1.0 /HPF (0.0-6.0) 01/18/17 Unknown Urine RBC (Auto) < 1.0 /HPF (0.0-6.0) 01/18/17 Unknown U Epithel Cells (Auto) < 1.0 /HPF (0-13.0) 01/18/17 Unknown Urine Mucus Few /HPF 01/18/17 Unknown
[2017-01-25] MEDS: DESYREL PO SCH (21:43)
[2017-01-25] MEDS: LOVENOX SUB-Q SCH (21:43)
[2017-01-25] MEDS: COGENTIN PO SCH (21:43)
[2017-01-25] MEDS: HALDOL PO SCH (21:44)
[2017-01-26] MEDS: APRESOLINE PO SCH ×2 (05:18→15:55)
[2017-01-26 07:18] LABS: INR 1.18 (0.87-1.13)
[2017-01-26 07:26] LABS: Anion Gap 17 mmol/L; BUN/Creatinine Ratio 24; Blood Urea Nitrogen 22 mg/dL (7-17); Carbon Dioxide 22 mmol/L (22-30); Chloride 104.2 mmol/L (98-107); Glucose 100 mg/dL (65-100); Potassium 4.3 mmol/L (3.6-5.0); Sodium 139 mmol/L (137-145)
--- NOTE | 2017-01-26 08:54 | Event Note ---
Date: 01/26/17 Called and spoke with pt's daughter Rupali Rico ([phone]) this am about PEG tube placement. Discussed benefits, purpose, and risks with her. She wishes to not proceed with EGD/PEG at this time. She states that her mother ate well for her yesterday and she believes she does not need one placed. Will cancel EGD/ PEG for today and sign off. Dr. Bone notified of family's refusal for PEG. Please re-consult if needed.
--- NOTE | 2017-01-26 10:13 | Progress Note ---
Hospitalist Physical - Constitutional Vitals: Temp Pulse Resp BP Pulse Ox 98.0 F 74 20 129/64 98 01/26/17 04:06 01/26/17 04:06 01/26/17 04:06 01/26/17 04:06 01/26/17 04:06 General appearance: Present: no acute distress, well-nourished, other (not able to communicate noncommunicative) Results - Labs CBC & Chem 7: 01/24/17 06:06 01/26/17 06:26 Labs: Laboratory Last Values WBC 7.2 K/mm3 (4.5-11.0) 01/24/17 06:06 RBC 4.03 M/mm3 (3.65-5.03) 01/24/17 06:06 Hgb 13.2 gm/dl (10.1-14.3) 01/24/17 06:06 Hct 38.5 % (30.3-42.9) 01/24/17 06:06 MCV 95 fl (79-97) 01/24/17 06:06 MCH 33 pg (28-32) H 01/24/17 06:06 MCHC 34 % (30-34) 01/24/17 06:06 RDW 14.2 % (13.2-15.2) 01/24/17 06:06 Plt Count 306 K/mm3 (140-440) 01/24/17 06:06 Lymph % (Auto) 29.9 % (13.4-35.0) 01/24/17 06:06 [place] % (Auto) 8.1 % (0.0-7.3) H 01/24/17 06:06 Eos % (Auto) 1.7 % (0.0-4.3) 01/24/17 06:06 Baso % (Auto) 0.2 % (0.0-1.8) 01/24/17 06:06 Lymph # 2.1 K/mm3 (1.2-5.4) 01/24/17 06:06 [place] # 0.6 K/mm3 (0.0-0.8) 01/24/17 06:06 Eos # 0.1 K/mm3 (0.0-0.4) 01/24/17 06:06 Baso # 0.0 K/mm3 (0.0-0.1) 01/24/17 06:06 Seg Neutrophils % 60.1 % (40.0-70.0) 01/24/17 06:06 Seg Neutrophils # 4.3 K/mm3 (1.8-7.7) 01/24/17 06:06 PT 15.6 Sec. (12.2-14.9) H 01/26/17 06:26 INR 1.18 (0.87-1.13) H 01/26/17 06:26 APTT 30.4 Sec. (24.2-36.6) 01/18/17 13:27 Thrombin Time 16.4 Sec. (15.1-19.6) 01/18/17 13:27 Sodium 139 mmol/L (137-145) 01/26/17 06:26 Potassium 4.3 mmol/L (3.6-5.0) 01/26/17 06:26 Chloride 104.2 mmol/L (98-107) 01/26/17 06:26 Carbon Dioxide 22 mmol/L (22-30) 01/26/17 06:26 Anion Gap 17 mmol/L 01/26/17 06:26 BUN 22 mg/dL (7-17) H 01/26/17 06:26 Creatinine 0.9 mg/dL (0.7-1.2) 01/26/17 06:26 Estimated GFR > 60 ml/min 01/26/17 06:26 BUN/Creatinine Ratio 24 % 01/26/17 06:26 Glucose 100 mg/dL (65-100) 01/26/17 06:26 POC Glucose 150 (70-105) H 01/25/17 16:51 Calcium 9.0 mg/dL (8.4-10.2) 01/26/17 06:26 Magnesium 2.00 mg/dL (1.7-2.3) 01/21/17 06:41 Total Bilirubin 0.50 mg/dL (0.1-1.2) 01/19/17 13:49 AST 14 units/L (5-40) 01/19/17 13:49 ALT 10 units/L (7-56) 01/19/17 13:49 Alkaline Phosphatase 156 units/L (35-129) H 01/19/17 13:49 Troponin T < 0.010 ng/mL (0.00-0.029) 01/18/17 13:27 Total Protein 6.5 g/dL (6.3-8.2) 01/19/17 13:49 Albumin 3.1 g/dL (3.9-5) L 01/19/17 13:49 Albumin/Globulin Ratio 0.9 % 01/19/17 13:49 Triglycerides 73 mg/dL (2-149) 01/20/17 04:43 Cholesterol 145 mg/dL (50-199) 01/20/17 04:43 LDL Cholesterol Direct 94 mg/dL (50-130) 01/20/17 04:43 HDL Cholesterol 37 mg/dL (40-59) L 01/20/17 04:43 Cholesterol/HDL Ratio 3.91 % 01/20/17 04:43 Urine Color Yellow (Yellow) 01/18/17 Unknown Urine Turbidity Clear (Clear) 01/18/17 Unknown Urine pH 6.0 (5.0-7.0) 01/18/17 Unknown Ur Specific [place] 1.014 (1.003-1.030) 01/18/17 Unknown Urine Protein <15 mg/dl mg/dL (Negative) 01/18/17 Unknown Urine Glucose (UA) Neg mg/dL (Negative) 01/18/17 Unknown Urine Ketones Neg mg/dL (Negative) 01/18/17 Unknown Urine Blood Neg (Negative) 01/18/17 Unknown Urine Nitrite Neg (Negative) 01/18/17 Unknown Urine Bilirubin Neg (Negative) 01/18/17 Unknown Urine Urobilinogen 4.0 mg/dL (<2.0) 01/18/17 Unknown Ur Leukocyte Esterase Neg (Negative) 01/18/17 Unknown Urine WBC (Auto) 1.0 /HPF (0.0-6.0) 01/18/17 Unknown Urine RBC (Auto) < 1.0 /HPF (0.0-6.0) 01/18/17 Unknown U Epithel Cells (Auto) < 1.0 /HPF (0-13.0) 01/18/17 Unknown Urine Mucus Few /HPF 01/18/17 Unknown
[2017-01-26] MEDS: HABITROL TD SCH (10:44)
[2017-01-26] MEDS: NORVASC PO SCH (10:44)
[2017-01-26] MEDS: LOPRESSOR PO SCH (10:45)
[2017-01-26] MEDS: DITROPAN PO SCH (10:45)
--- NOTE | 2017-01-26 12:36 | Discharge Summary ---
<IRMA AU - Last Filed: 01/29/17 16:16> Providers - Providers Date of Admission: 01/19/17 00:41 Date of discharge: 01/26/17 Attending physician: MCKENNA KAPLAN MD 01/19/17 00:41 Occupational Therapy Evaluate and Treat [CONS] Routine Comment: Reason For Exam: Neuro deficits Physical Therapy Evaluation and Treat [CONS] Routine Comment: Reason For Exam: Neuro deficits 01/19/17 12:00 Consult to Physician [CONS] Urgent Consulting Provider: RAVEN HAN Reason For Exam: Acute CVA Notified:: Yes 01/23/17 11:28 Speech Therapy Evaluation and Treat [CONS] Urgent Reason For Exam: cva 01/24/17 13:06 Speech Therapy Evaluation and Treat [CONS] Routine Reason For Exam: aphasia 01/24/17 13:52 Consult to Physician [CONS] Routine Consulting Provider: JACK YOUNG Reason For Exam: evaluate for PEG placement Place consult to:: YUE Notified:: Vania BAR Phone number called:: Was contact made?: Yes If yes, spoke with:: Delaney-office Time called:: 16:28 Primary care physician: ANETA HUSAIN Hospitalization Condition: Stable Hospital course: 66 YO Female with HTN, CVA with LHP, Dementia, Nicotine Dependence, HLD, presents to ED for evaluation. Pt is unable to give history due to lethargy, and diminished cognition. Pt daughter at bedside during exam and interview and provides history. As per daughter, the patient has experienced recurrent falls and weakness over the past month. Pt also experienced confusion and slurred speech and new onset right sided weakness that began about 0300 hrs with persistent symptoms since that time. No reports of fever, chills, CP, Palpitations, NVD, syncope, loss of bowel/bladder continence, vertigo, leg swelling/calf pain, individual/family history of DVT/PE, productive cough, or recent ill contacts. Pt seen and evaluated in ED and found to have symptoms and exam findings consistent with acute stroke. Head CT showed evidence of atrophy and microangiopathic ischemic disease. No acute intracranial process. Chest X ray and pelvic x ray were unremarkable. Carotid doppler revealed less than 50% diameter reduction in the carotid arteries bilaterally. Echocardiogram estimated EF 55-60%. Brain MRI revealed 1cm ficys if subacute ischemia in the left lateral frontal lobe cortex. Head MRA was normal. Patient was treated with IFV, anticoagulants, antihypertensives , beta blockers, Potassium replacement and resumed home medications. Patient was discharged to SNF. Discharge diagnosis CVA HTN Alzheimers disease GERD Disposition: DC/[place]-03 SNF W [facility] CERT Core Measure Documentation - Palliative Care Palliative Care/ Comfort Measures: Not Applicable - Core Measures Any of the following diagnoses?: none Exam - Physical Exam Narrative exam: Patient is lethargic, not responsive to verbal stimuli, only opens her eyes briefly when touched - Constitutional Vitals: Temp Pulse Resp BP Pulse Ox 98.0 F 78 20 123/71 98 01/26/17 04:06 01/26/17 10:45 01/26/17 04:06 01/26/17 10:45 01/26/17 04:06 General appearance: Present: no acute distress - EENT Eyes: Present: PERRL, EOM intact ENT: hearing intact, clear oral mucosa - Neck Neck: Present: supple, normal ROM - Respiratory Respiratory effort: normal Respiratory: bilateral: CTA - Cardiovascular Rhythm: regular Heart Sounds: Present: S1 & S2. Absent: rub, click - Extremities Extremities: pulses symmetrical, No edema Peripheral Pulses: within normal limits - Abdominal General gastrointestinal: Present: soft, non-distended, normal bowel sounds Female genitourinary: Present: deferred - Rectal Rectal Exam: deferred - Integumentary Integumentary: Present: clear, warm, dry - Musculoskeletal Musculoskeletal: other (unable to access due to lethargy) - Psychiatric Psychiatric: other (Non verbal) - Neurologic Neurologic: other (Right-sided hemiparesis with facial palsy. Patient is noncommunicative.) - Allied Health Allied health notes reviewed: nursing Plan Activity: fall precautions Weight Bearing Status: Weight Bear as Tolerated Diet: low fat, low cholesterol, low salt Follow up with: ANETA HUSAIN MD [Primary Care Provider] - 3-5 Days Prescriptions: hydrALAZINE [Apresoline TAB] 25 mg PO Q8HR #30 tablet <MCKENNA KAPLAN - Last Filed: 02/04/17 13:51> Providers - Providers Date of Admission: 01/19/17 00:41 Attending physician: MCKENNA KAPLAN MD 01/19/17 00:41 Occupational Therapy Evaluate and Treat [CONS] Routine Comment: Reason For Exam: Neuro deficits Physical Therapy Evaluation and Treat [CONS] Routine Comment: Reason For Exam: Neuro deficits 01/19/17 12:00 Consult to Physician [CONS] Urgent Consulting Provider: RAVEN HAN Reason For Exam: Acute CVA Notified:: Yes 01/23/17 11:28 Speech Therapy Evaluation and Treat [CONS] Urgent Reason For Exam: cva 01/24/17 13:06 Speech Therapy Evaluation and Treat [CONS] Routine Reason For Exam: aphasia 01/24/17 13:52 Consult to Physician [CONS] Routine Consulting Provider: JACK YOUNG Reason For Exam: evaluate for PEG placement Place consult to:: GI Notified:: Vania BAR Phone number called:: Was contact made?: Yes If yes, spoke with:: Delaney-office Time called:: 16:28 Primary care physician: ANETA HUSAIN Hospitalization Reason for admission: CVA Pertinent studies: MRI brain 1 cm focus of subacute ischemia in the left lateral frontal lobe cortex. Time spent for discharge: 31 minutes - Discharge Diagnoses (1) CVA (cerebral infarction) Status: Acute Qualifiers: Cerebral infarction mechanism: unspecified mechanism Qualified Code(s): I63.9 - Cerebral infarction, unspecified Comment: Improved a lot (2) Weakness Status: Acute (3) HTN (hypertension) Status: Chronic Qualifiers: Hypertension type: essential hypertension Qualified Code(s): I10 - Essential (primary) hypertension (4) Alzheimers disease Status: Chronic (5) GERD (gastroesophageal reflux disease) Status: Chronic Exam - Constitutional Vitals: Temp Pulse Resp BP Pulse Ox 97.8 F 74 18 131/71 99 01/26/17 15:40 01/26/17 15:40 01/26/17 15:40 01/26/17 15:40 01/26/17 15:40
[2017-01-26 15:55] VITALS: BP 131/71
== END 2017-01-26 15:49 | DRG 65 ==
LOC: ED 12:36 → 4A 01-19 00:41
PROVIDERS: ADMIT Internal Medicine; ATTEND Internal Medicine
DX: I63.9 Cerebral infarction, unspecified (principal); G81.94 Hemiplegia, unspecified affecting left nondominant side; E87.6 Hypokalemia; I10 Essential (primary) hypertension; E78.5 Hyperlipidemia, unspecified; K21.9 Gastro-esophageal reflux disease without esophagitis; G30.9 Alzheimer's disease, unspecified; F02.80 Dementia in other diseases classified elsewhere, unspecified severity, without behavioral disturbance, psychotic disturbance, mood disturbance, and anxiety; F17.200 Nicotine dependence, unspecified, uncomplicated; Z53.8 Procedure and treatment not carried out for other reasons; Z71.6 Tobacco abuse counseling; Z88.0 Allergy status to penicillin; Z79.899 Other long term (current) drug therapy; Z83.3 Family history of diabetes mellitus; Z82.49 Family history of ischemic heart disease and other diseases of the circulatory system
CPT/HCPCS: 36415; 70450; 70544; 70551; 71010; 72170; 80048; 80053; 80061; 81001; 82962; 83735; 84484; 85025; 85610; 85670; 85730; 93005; 93010; 93306; 93880; A9270-GY; G8978-GP; G8979-GP; G8987-GO; G8988-GO; G8996-GN; G8997-GN; G8998-GN; J0360; J1650; J2060